=== PATIENT | female | born 1945 | race Caucasian/White ===

== ENCOUNTER 2016-07-23 13:13 | Outpatient (CLI) | payer MEDICARE ==
[~2016-07-23] VITALS: Ht 152.4 cm; Wt 70.5 kg
--- NOTE | ~2016-07-23 | HEMODYNAMI ---
PATIENT:ELOINA BAIRES MEDICAL RECORD: [id number] : 45 LOCATION:[facility] D.[address] [facility]# [id number] ADMISSION DATE: 07/23/16 Generatedon:07/23/201617:50 Patient name: ELOINA BAIRES Patient #: [id number] SSN: : 1945 Date of study: 07/23/2016 Page: Of Hemodynamic Procedure Report Patient Data Patient Demographics Procedure consent was obtained First Name: ELOINA Gender: Female Last Name: VIRY : 1945 Middle Initial: A Age: 71 year(s) Patient #: [id number] Race: Additional ID: [id number] Contact details Address: [address] [place] [address] ROAD State: [place] City: [facility] Zip code: [address] Past Medical History History of disease Date Diagnosis Comments CAD Allergies Allergen Reaction Date Comments Reported Other allergy 12/30/2014 keflex, PCN, Codeine, Ceclor, Zyrtec, Doxycyline, Levaquin Admission Admission Data Admission Date: 07/23/2016 Admission Time: 13:45 Room #: D.2114 Lab Results Lab Result Date: 07/23/2016 Lab Result Time: 0:00 Biochemistry Name Units Result Min Max BUN mg/dl 5 -*(----)-- 7 18 Creatinine mg/dl 0.9 --(-*--)-- 0.6 1.3 CBC Name Units Result Min Max Hemoglobin g/dl 12 *-(----)-- 13.5 17.5 Procedure Procedure Types Cath Procedure Diagnostic Procedure LHC LHC w/Coronaries Procedure Description Procedure Date Procedure Date: 07/23/2016 Procedure Start Time: 17:41 Procedure End Time: 17:50 Procedure Staff Name Function Adolfo Valle MD Performing Physician Enrique Smith RT Scrub Bull Benson RN Nurse Edson Ferreira RT Monitor Procedure Data Cath Procedure Fluoroscopy Diagnostic fluoroscopy Total fluoroscopy Time: 1 time: 1 min min Diagnostic fluoroscopy Total fluoroscopy dose: 441 dose: 441 mGy mGy Contrast Material Contrast Material Type Amount (ml) Isovue 300 53 Entry Location Entry Primary Successful Side Size Upsize Upsize Entry Closure Bruce ccessful Closure Location (Fr) 1 (Fr) 2 (Fr) Remarks Device Remarks Radial Right 6 Fr Mechanical artery Short Compression Estimated blood loss: 10 ml Diagnostic catheters Device Type Used For End Catheter Placement Terumo 5Fr [place] 110cm Coronary catheter Angiography Procedure Complications No complications Procedure Medications Medication Administration Route Dosage Oxygen NC 2 l/min Heparin Flush Bag added to field 2 bags (1000units/500ml NS) 0.9% NaCl I.V. 100 ml/hr Fentanyl I.V. 50 mcg Versed I.V. 1 mg Radial Cocktail added to field 1 syringe (Verapomil 2mg/Nitro 400mcg/Heparin 1500units) Radial Cocktail I.A. 1 syringe (Verapomil 2mg/Nitro 400mcg/Heparin 1500units) Fentanyl I.V. 50 mcg Versed I.V. 1 mg Hemodynamics Rest HGB: 12 (g/dl) Heart Rate: 80 (bpm) Snapshots Pre Cath Intra NCS Post Cath Vital Signs Time Heart Resp SPO2 NIBP (mmHg) Rhythm Pain Sedation Rate (ipm) (%) Status Level (bpm) 17:29:27 80 18 99 162/73(109) NSR 0 (11) 10(A) , No pain 17:33:53 75 17 97 150/58(101) NSR 0 (11) 10(A) , No pain 17:38:16 80 18 94 139/57(98) NSR 0 (11) 10(A) , No pain 17:42:34 84 17 95 130/55(83) NSR 0 (11) 9(A) , No pain 17:46:50 86 18 94 117/50(77) NSR 0 (11) 9(A) , No pain 17:49:25 90 16 94 117/57(82) NSR 0 (11) 9(A) , No pain Medications Time Medication Route Dose Verified Delivered Reason Notes Effectiveness by by 17:28:36 Oxygen NC 2 l/min Bull Gottlieb Per Marcelino Benson RN physician RN 17:28:52 Heparin Flush added 2 bags Bull Gottlieb used for Bag to Marcelino Benson mailing specialist (1000units/500ml field RN NS) 17:29:11 0.9% NaCl I.V. 100 Bull Bull Per ml/hr Marcelino Benson RN physician RN 17:40:30 Fentanyl I.V. 50 mcg Bull Bull for sedation Marcelino Benson RN RN 17:40:36 Versed I.V. 1 mg Bull Bull for sedation Marcelino Benson RN RN 17:41:49 Radial Cocktail added 1 Bull Bull used for (Verapomil to syringe Marcelino Benson RN procedure 2mg/Nitro field RN 400mcg/Heparin 1500units) 17:43:06 Radial Cocktail I.A. 1 Bull Bull for (Verapomil syringe Marcelino Benson RN vasodilation 2mg/Nitro RN 400mcg/Heparin 1500units) 17:43:13 Fentanyl I.V. 50 mcg Bull Bull for sedation Marcelino Benson RN RN 17:43:18 Versed I.V. 1 mg Bull Bull for sedation Marcelino Benson RN varnish inspector Log Time Note 17:00:15 Enrique Smith RT(R) sent for patient. Start room use. 17:08:04 ACC Patient presents with Unstable Angina CCS Anginal Class 3--Marked limitation of physical activity, angina occurs with ordinary activity.. 17:08:06 Diagnostic Cath status Urgent 17:15:59 Time tracking: Regular hours 17:16:03 Plan of Care:Hemodynamics will remain stable., Cardiac rhythm will remain stable., Comfort level will be maintained., Respiratory function will remain adequate., Patient/ family verbilizes understanding of procedure., Procedure tolerated without complication., Recovers from procedure without complications.. 17:17:42 Patient received from PCU to CCL 1 Alert and oriented. Tansferred to table in Supine position. 17:17:43 Warm blankets applied, and birdie hugger turned on for patient comfort. 17:17:44 Correct patient and procedure confirmed by team. 17:17:45 Signed procedure consent form obtained from patient. 17:17:46 ECG and BP/O2 sat monitors applied to patient. 17:28:14 Vital chart was started 17:28:36 Oxygen 2 l/min NC was given by Bull Benson RN; Per physician; 17:28:52 Heparin Flush Bag (1000units/500ml NS) 2 bags added to field was given by Bull Benson RN; used for procedure; 17:29:11 0.9% NaCl 100 ml/hr I.V. was given by Bull Benson RN; Per physician; 17:29:28 Baseline sample Acquired. 17:29:30 Rhythm: sinus rhythm 17:29:33 Full Disclosure recording started 17:29:41 H&P Date Dictated: 07/23/2016 Emergent; H&P N/A. 17:29:43 Pre-procedure instructions explained to patient. 17:29:44 Pre-op teaching completed and patient verbalized understanding. 17:29:45 Family in waiting room. 17:29:47 Patient NPO since Midnight. 17:29:49 Is the patient allergic to Iodine/contrast media? No. 17:29:50 Is patient on blood thinner?No 17:31:01 ACC The patient was administered the following blood thiners within the last 24 hours: None 17:31:12 Patient diabetic? Yes. 17:31:13 If diabetic: On Metformin? Yes 17:31:14 If on Metformin: Last Dose? 07/22/2016 17:31:16 Patient not . Patient is over age 55. 17:31:19 Previous problem with sedation/anesthesia? No ? 17:31:20 Snore? Yes 17:31:21 Sleep apnea? No 17:31:22 Deviated septum? No 17:31:23 Opens mouth fully? Yes 17:31:24 Sticks out tongue? Yes 17:31:26 Airway obstruction? Yes COPD 17:31:29 Dentures? Yes IN 17:31:33 Pre procedure: right dorsailis pedis pulse 1+ Palpable, but thready & weak; easily obliterated 17:31:35 Modified Andrei's test Ulnar < 7 seconds 17:31:36 Patient pain scale 0/10 ?. 17:31:40 IV patent on arrival in left forearm with 0.9% NaCl at [facility]. 17:31:43 Lab results completed and on chart. 17:31:47 Right Radial & Right Groin area was prepped with chlora-prep and draped in sterile fashion 17:31:48 Alarms reviewed by R. N. 17:31:48 Sharps counted by scrub and verified by R.N. 17:31:49 Physician paged 17:35:46 Zero performed for pressure channel P1 17:37:53 Lab Result : BUN 5 mg/dl 17:37:53 Lab Result : Creatinine 0.9 mg/dl 17:37:53 Lab Result : Hemoglobin 12 g/dl 17:38:43 --------ALL STOP TIME OUT------ 17:38:44 Final Timeout: patient, procedure, and site verified with staff and physician. All members of the team are in agreement. 17:38:46 Right Radial & Right Groin site verified by team. 17:38:56 Physical assessment completed. ASA score P 2 - A patient with mild systemic disease as per Adolfo Valle MD. 17:38:59 Sedation plan: IV Moderate Sedation Versed, Fentanyl 17:40:30 Fentanyl 50 mcg I.V. was given by Bull Benson RN; for sedation; 17:40:36 Versed 1 mg I.V. was given by Bull Benson RN; for sedation; 17:41:33 Procedure started. 17:41:38 Local anesthetic to right radial artery with Lidocaine 2% by Adolfo Valle MD.INITIAL ACCESS ONLY 17:41:40 Use device set Radial Dx 17:41:41 Tegaderm 4 x 4 opened to sterile field. 17:41:42 Acist Manifold opened to sterile field. 17:41:42 Acist Hand Control opened to sterile field. 17:41:44 Acist Syringe opened to sterile field. 17:41:44 Cardinal Cath Pack opened to sterile field. 17:41:44 Bag Decanter opened to sterile field. 17:41:45 Terumo 6Fr Slender Glidesheath opened to sterile field. 17:41:45 St Neymar 260cm J .035 wire opened to sterile field. 17:41:49 Radial Cocktail (Verapomil 2mg/Nitro 400mcg/Heparin 1500units) 1 syringe added to field was given by Bull Benson RN; used for procedure; 17:42:27 A 6 Fr Short sheath was inserted into the Right Radial artery 17:43:06 Radial Cocktail (Verapomil 2mg/Nitro 400mcg/Heparin 1500units) 1 syringe I.A. was given by Bull Benson RN; for vasodilation; 17:43:13 Fentanyl 50 mcg I.V. was given by Bull Benson RN; for sedation; 17:43:14 A Terumo 5Fr [place] 110cm catheter was advanced over the wire and used for Coronary Angiography. 17:43:18 Versed 1 mg I.V. was given by Bull Benson RN; for sedation; 17:43:58 LV angiography performed. 17:44:05 LV gram done using CARDONA 17:44:10 EF : 50 % 17:44:15 Injector settings: Ml/sec: 5, Volume: 15, 17:44:35 LCA angiography performed. 17:45:39 RCA angiography performed. 17:47:25 Catheter removed. 17:47:42 Terumo TR Band Standard opened to sterile field. 17:48:02 Sheath removed intact; hemostasis achieved with Mechanical Compression to the Right Radial artery. 17:48:04 Procedure ended.(Physican Out) 17:48:12 Fluoroscopy time 01.00 minutes. 17:48:14 Flurop Dose total: 441 17:48:14 Fluoroscopy dose: 441 mGy 17:48:17 Contrast amount:Isovue 300 53ml. 17:48:19 Sharps counted by scrub and verified by R.N. 17:48:22 TR band inflated with 12cc of air. 17:48:22 Insertion/operative site no bleeding no hematoma. 17:48:24 Post Procedure Pulses reassessed and unchanged 17:48:28 Post-procedure physical assessment completed. ASA score P 2 - A patient with mild systemic disease as per Adolfo Valle MD. 17:48:30 Post procedure rhythm: unchanged. 17:48:32 Estimated blood loss: 10 ml 17:48:34 Post procedure instruction explained to patient.Patient verbalizes understanding. 17:48:35 Patient needs reinforcement of post procedure teaching. 17:48:49 Procedure Complication : No complications 17:49:02 Procedure and supply charges have been captured, reviewed, submitted and are correct. 17:50:18 Vital chart was stopped 17:50:18 See physician's report for complete and final results. 17:50:21 Report given to PCU. 17:50:24 Patient transfered to PCU with Bed. 17:50:25 Procedure ended. 17:50:25 Full Disclosure recording stopped 17:50:31 End room use (Document Last) Device Usage Item Name Manufacture Quantity Catalog Hospital Part Current Minimal Lot# / Number Charge Number Stock Stock Serial# Code Tegaderm 4 3M 1 [id number] 480008 [id number] [id number] 5 x 4 Acist Acist 1 65471 502660 217044 237689 5 Manifold [employer] Inc Acist Hand Acist 1 60850 761523 837831 551564 5 Control [employer] Inc Acist Acist 1 75176 906372 419139 858295 20 Syringe Medical Systems Inc Cardinal Cardinal 1 [id number] 057532 87176 375713 5 Cath Pack Health Bag Microtek 1 2002S 0022999 48541 006858 5 Decanter [employer] Inc[employer] Terumo 6Fr Terumo 1 [id number] 217551 704463 299466 [address] Neymar 1 130466 526211 983605 394158 30 260cm J .035 wire Terumo 5Fr Terumo 1 40-1787 019282 132648 042129 5 [place] 110cm catheter Terumo TR Terumo 1 [id number] 335694 407439 508981 40 Band Standard Signature [place] Stage Time Signature Unsigned Intra-Procedure 07/23/2016 Edson Ferreira 5:50:46 PM RT(R) Signatures Monitor : Edson Ferreira RT Signature : Date : Time : [address] [place] [address]
[2016-07-23 12:15] LABS: BASOPHILS 0.2 % (0.0-2.0); EOSINOPHILS 2.1 % (0-7); HEMATOCRIT 36.5 % (36.0-48.0); IMMATURE GRANULOCYTES 0.3 % (0-5); LYMPHOCYTES 21.5 % (15-50); MCHC 32.9 g/dL (31.0-37.0); MCV 88.2 fL (80.0-100.0); MEAN PLATELET VOLUME 9.6 fL (7.4-10.4); MONOCYTES 5.7 % (2-11); NEUTROPHILS 70.2 % (40-80); PLATELET COUNT 159 10x3/uL (130-400); RBC 4.14 10x6/uL (4.00-5.40); RDW 13.4 % (11.5-14.5); WBC 5.8 10x3/uL (4.8-10.8)
[2016-07-23 12:35] LABS: ALBUMIN 3.7 g/dL (3.4-5.0); ALKALINE PHOSPHATASE 88 U/L (46-116); ALT (SGPT) 28 U/L (10-68); BILIRUBIN - TOTAL 0.32 mg/dL (0.2-1.3); CALC OSMOLALITY 278 mosm/kg (275-300); CALCIUM 8.6 mg/dL (8.5-10.1); CARBON DIOXIDE 26.3 mmol/L (21.0-32.0); CHLORIDE - SERUM 104 mmol/L (98-107); CREATININE - SERUM 0.9 mg/dL (0.6-1.3); GLUCOSE 153 mg/dL (74-106); POTASSIUM - SERUM 4.1 mmol/L (3.5-5.1); PROTEIN - SERUM 6.7 g/dL (6.4-8.2); SODIUM 140 mmol/L (136-145); UREA NITROGEN 5 mg/dL (7-18); eGFR NON AFRICAN AMERICAN 65 mL/min (90-120)
[2016-07-23 12:47] LABS: CHOL - HDL RATIO 2.9 ratio (2.3-4.1); CHOLESTEROL, TOTAL 156 mg/dL (0-200); CKMB 0.5 U/L (0.0-3.6); CREATINE KINASE 86 UL (21-215); HDL CHOLESTEROL 54 mg/dL (32-96); LDL CHOLESTEROL 84 mg/dL (0-100); LDL-HDL RATIO 1.6 ratio (1.5-3.5); TRIGLYCERIDE 90 mg/dL (30-200)
[2016-07-23 12:49] LABS: TROPONIN-I < 0.017 ng/mL (0.000-0.060)
[~2016-07-23 13:13] MED LIST: ACETAMINOPHEN500 M1 PO; BAYER CHEWABLE81 MG PO; CALTRATE PO; CELEXA20 MG PO; CELEXA40 MG PO; CO Q-10400 MG PO; COZAAR100 MG PO; CYMBALTA30 MG PO; FISH OIL 1,0001 CA1 PO; ISOSORBIDE MONO30 M1 PO; MUCINEX1200 MG/BO PO; NORVASC10 MG PO; OMNICEF300 MG PO; PLAVIX75 MG PO; PRAVACHOL40 MG PO; PREDNISONE10 MG PO; PRILOSEC20 MG PO; SINGULAIR10 MG PO; SOMA350 MG PO; STERAPRED DS 1210 MG PO; SYMBICORT 80-10.2 GM INH; SYNTHROID50 MCG PO; SYNTHROID75 MCG PO; TUDORZA PRESS400 MCG INH; VENTOLIN HFA18 GM INH; VITAMIN D31000 UNIT PO; XANAX0.5 MG PO; ZITHROMAX 500M500 MG PO
--- NOTE | 2016-07-23 14:57 | NUR ---
TRANSFER FROM ER BY STRETCHER. OREINTED TO ROOM. CALL LIGHT IN REACH. WILL COPNT. PLAN OF CARE.
[2016-07-23 15:06] VITALS: BP 122/48; Ht 152.4 cm; Wt 70.5 kg
[2016-07-23] MEDS ORDERED: LEVOTHYROXINE50 MCG PO (15:29)
[2016-07-23] MEDS ORDERED: HYDROCODON-ACE1 EAC7 PO (15:31)
[2016-07-23] MEDS ORDERED: SYMBICORT 80-10.2 GM INH (15:32)
[2016-07-23] MEDS ORDERED: GLUCOPHAGE500 MG PO (15:32)
[2016-07-23] MEDS ORDERED: K-DUR20 MEQ PO (15:33)
[2016-07-23 16:00] VITALS: BP 100/76
--- NOTE | 2016-07-23 17:22 | NUR ---
LEAVING FOR ENERGY PROJECT ENGINEER BY BED.
--- NOTE | 2016-07-23 18:11 | NUR ---
BACK FROM RESIDENCE LIFE DIRECTOR. VS WNL. RIGHT WRIST STABLE WITH TR BAND INTACT. WILL MONITOR.
[2016-07-23] MEDS ORDERED: ISOSORBIDE MONO60 M1 PO ×2 (18:44→20:07)
--- NOTE | 2016-07-23 19:00 | NUR ---
RECEIVED REPORT AND ASSUMED PT CARE FROM DAY SHIFT NURSE @ THIS TIME.
--- NOTE | 2016-07-23 19:45 | NUR ---
ATTEMPT TO RELEASE HALF THE AIR FROM TR BAND AND BAND STARTED BLEEDING REINSTILLED AIR. WILL MONITOR FREQ FOR FURTHER BLEEDING
--- NOTE | 2016-07-23 20:15 | NUR ---
REMOVED 4 CC AIR FROM TR BAND, NO BLEEDING NOTED. WILL CONT TO MONITOR.
[2016-07-23 20:25] VITALS: BP 104/41
--- NOTE | 2016-07-23 20:45 | NUR ---
ANOTHER 4 ML AIR REMOVED FROM TR BAND. NO BLEEDING NOTED. WILL MONITOR.
--- NOTE | 2016-07-23 21:29 | NUR ---
ALL THE AIR REMOVED FROM THE TR BAND, NO BLEEDING NOTED. TELEMETRY REMOVED AND IV NOW OUT, DRESSING PLACED. DISCHARGE INSTRUCTIONS GIVEN AND SIGNED. PRESCRIPTION FOR IMDUR GIVEN. DOWN TO PERSONAL AUTO VIA WC ACCOMPANIED BY SPOUSE.
--- NOTE | 2016-07-26 14:16 | OP ---
PATIENT NAME: ELOINA BAIRES MEDICAL RECORD: [id number] :45 LOCATION:D.M2 D.2114 ADMISSION DATE:07/23/16 SURGEON: ELVIS BUTLER MD DATE OF OPERATION: 07/23/2016 PROCEDURES: 1. Left heart catheterization. 2. Selective coronary angiography. 3. Left ventriculogram. INDICATION: Unstable angina. PROCEDURE IN DETAIL: After informed consent was obtained and after a detailed explanation of the risks, benefits as well as alternative therapies, the patient elected to proceed with angiogram and heart catheterization. The right radial area is prepped and draped in normal sterile fashion. The right radial artery was cannulated via modified Seldinger technique with placement of 5-Tunisian sheath. All catheters exchanged through this sheath. FINDINGS: Left ventriculogram was performed in the standard 30-degree CARDONA view reveals good cardiac wall motion throughout all segments. Overall ejection fraction is 55%. SELECTIVE CORONARY ANGIOGRAPHY: 1. Left main has a 50% stenosis in the distal aspect. 2. Left circumflex has over 80% stenosis at the ostium. The first obtuse marginal has a 95% stenosis; both marginals have decent lumen suitable for grafting. 3. Left anterior descending has previously placed stent at the juncture of the LAD and LAD diagonal. This is 80-90% restenosis. The diagonal and LAD have good lumen suitable for grafting. 4. Right coronary has a 70% stenosis in the mid vessel with a good lumen distally, suitable for grafting. OVERALL IMPRESSION: Severe 3-vessel coronary artery disease with preserved LV function. Evaluate for coronary bypass graft surgery. TRANSINT:[id number] Voice Confirmation ID: [id number] DOCUMENT ID: [id number] ELVIS BUTLER MD at 1416 CC: [id number] DICTATION DATE: 07/23/16 1752 CUSTOMS COMPLIANCE SPECIALIST: 07/24/16 0019 DIS IN 07/23/16 [address] [place] [address]
--- NOTE | 2016-07-26 14:16 | HP ---
PATIENT: ELOINA BAIRES MEDICAL RECORD: [id number] ACCOUNT: [id number] LOCATION:[address] : 45 ADMISSION DATE: 07/23/16 HISTORY AND PHYSICAL EXAMINATION ADMITTING DIAGNOSES: 1. Unstable angina. 2. Coronary artery disease. 3. Previous multivessel percutaneous transluminal coronary angioplasty stent. 4. Diabetes. 4. Hypertension. 5. Hyperlipidemia. HISTORY OF PRESENT ILLNESS: Mrs. Baires presents with 1 week of increasing anginal discomfort in an unstable fashion. She has a past history of coronary artery disease, multivessel PTCA stent, history of hypertension, history of hyperlipidemia. ALLERGIES: INTOLERANT OF STATINS. REVIEW OF SYSTEMS: The patient reports easy bruising but reports no swollen glands. The patient reports no fever, no night sweats, no significant weight gain, no significant weight loss. No significant exercise tolerance. The patient reports no dry eyes, no irritation, no vision change. Patient reports no difficulty hearing and no ear pain. Patient reports no frequent nose bleeds or nose and sinus problems. Patient reports on arm pain on exertion. No shortness of breath while lying down. No history of heart murmur. Patient reports no cough, no wheezing or coughing up blood. Patient reports no abdominal pain, no vomiting. Normal appetite. No diarrhea and not vomiting blood. No nausea and no constipation. Patient reports no incontinence. No difficulty urinating. No hematuria. No increased frequency. Patient reports no muscle aches. No weakness, no arthralgias, no back pain. No swelling of the extremities. Patient reports no abnormal mole, no jaundice, no rashes. Reports no loss of consciousness. No weakness and no numbness. No seizures, dizziness, or headaches. The patient reports no depression, no sleep disturbance, feeling safe in a relationship and no alcohol abuse. Patient reports on fatigue. Reports no runny nose or sinus pressure. No itching, no hives, and no frequent sneezing. PHYSICAL EXAMINATION: GENERAL APPEARANCE: Well-nourished, well-developed, appears stated age. Level of distress, comfortable. PSYCHIATRIC: Mental status, alert, normal affect. Orientation, oriented to time, place and person. EYES: Lids and conjunctiva, noninjected. No discharge, no pallor. ENT: Lips, teeth, gums, normal dentition. Oropharynx, no cyanosis, no pallor. NECK: Carotid arteries, bilateral normal upstroke, no bruits, no thrills. JUGULAR VEINS: No jugular venous pressure or distention. CERVICAL LYMPH NODES: Nontender, nonenlarged. THYROID: Not enlarged. Nontender. No nodules. LUNGS: Respiratory effort, unlabored. CHEST: Normal curvature. No thoracic deformity. No chest wall tenderness. Percussion, resonant. Auscultation, clear. No wheezes, no rales, no rhonchi. CARDIOVASCULAR: Precordial exam, nondisplaced. No heaves or pericardial thrills. Rate and rhythm, regular. Heart sounds, normal S1, normal S2. No S3, HISTORY AND PHYSICAL [id number] GREESON,ELOINA A no gallop, no rub. Systolic murmur, not heard. Diastolic murmur, not heard. EXTREMITIES: No cyanosis, no edema. Peripheral pulses, full and equal in all extremities, except as noted. No bruits appreciated. ABDOMEN: Soft, nondistended. Normal aorta. No bruit. Nontender. No masses. Liver, nontender, no hepatomegaly. Spleen, nontender, no splenomegaly. MUSCULOSKELETAL: No joint tenderness. No joint swelling. No erythema. NEUROLOGICAL: Normal gait, normal strength, normal tone. SKIN: Warm and dry. OVERALL IMPRESSION: Chest discomfort compatible with angina in a progressive fashion. She have hemodynamically significant coronary artery disease. PLAN: We will proceed with coronary angiography. Further care depends upon findings of the angiography. TRANSINT:[id number] Voice Confirmation ID: [id number] DOCUMENT ID: [id number] ELVIS BUTLER MD at 1416 CC: [id number] DICTATION DATE: 07/23/16 175 MIS MANAGER: 07/23/16 1856 DIS IN 07/23/16 [facility] [address] [place] [address]
--- NOTE | 2016-07-26 14:16 | DS ---
PATIENT:ELOINA BAIRES :45 MEDICAL RECORD: [id number] DISCHARGE SUMMARY ADMISSION DATE: 07/23/16 DISCHARGE DATE: 07/23/16 DISCHARGE DIAGNOSES: 1. Angina. 2. Coronary artery disease. 3. Diabetes. 4. Hypertension. 5. Hyperlipidemia. HOSPITAL COURSE: Mrs. Baires presents with anginal symptomatology, found to have significant 3-vessel coronary artery disease. She was discharged with increasing her Imdur. We will follow up with Dr. Granda for evaluation of bypass surgery. TRANSINT:[id number] Voice Confirmation ID: [id number] DOCUMENT ID: [id number] ELVIS BUTLER MD at 1416 CC: [id number] DICTATION DATE: 07/23/161755 CO PILOT: 07/24/16 0736 DIS IN 07/23/16 [address] [place] [address]
[2016-08-06] MEDS ORDERED: PROTONIX40 MG PO (13:18)
[2016-08-06] MEDS ORDERED: MOBIC7.5 MG PO (13:23)
[2016-08-06] MEDS ORDERED: PRAVACHOL40 MG PO (13:23)
== END 2016-07-23 21:29 | disposition home or self-care (01) ==
LOC: OBSVTIME → D.CATH 13:13 → OBSVTIME 13:45 → D.M2 13:45 → D.ER 13:45 → D.M2 13:45 → EDSTATUS 15:00 → D.M2 21:29 → D.CATH 21:29
PROVIDERS: Emergency Medicine
DX: I25.110 Atherosclerotic heart disease of native coronary artery with unstable angina pectoris (principal); Z95.5 Presence of coronary angioplasty implant and graft; E11.9 Type 2 diabetes mellitus without complications; I10 Essential (primary) hypertension; E78.5 Hyperlipidemia, unspecified

== ENCOUNTER → 2016-07-28 14:33 | Outpatient (CLI) | payer MEDICARE ==
[2016-07-23 15:06] VITALS: BMI 30.3
[~2016-07-28 14:33] MED LIST changes: +ATROVENT 0.02%2.5 ML UPD; +BREO ELLIPTA 21 EACH INH; +CORDARONE200 MG PO; +FISH OIL 1,2001 CAP PO; +GLUCOPHAGE500 MG PO; +HEMOCYTE PLUS C1 CAP PO; +HYDROCODON-ACE1 EAC7 PO; +ISOSORBIDE MONO60 M1 PO; +K-DUR20 MEQ PO; +LEVOTHYROXINE50 MCG PO; +MOBIC7.5 MG PO; +PROTONIX40 MG PO; +XOPENEX 0.0.63 MG/3 UPD
[2016-07-29 07:26] LABS: HEP B CORE AB TOTAL Negative (Negative); HEPATITIS C ANTIBODY <0.1 (0.0-0.9)
== END | disposition home or self-care (01) ==
LOC: D.LAB 14:33 → D.CT 15:00
PROVIDERS: Internal Medicine Cardiovascular Disease
DX: I65.23 Occlusion and stenosis of bilateral carotid arteries (principal); Z01.812 Encounter for preprocedural laboratory examination

== ENCOUNTER 2016-08-09 05:00 | Inpatient (IN) | payer MEDICARE ==
[2016-08-06 15:02] LABS: BASOPHILS 0.2 % (0.0-2.0); EOSINOPHILS 1.8 % (0-7); HEMATOCRIT 38.3 % (36.0-48.0); HEMOGLOBIN 12.6 g/dL (12-16); IMMATURE GRANULOCYTES 0.6 % (0-5); LYMPHOCYTES 28.2 % (15-50); MCH 29.1 pg (26.0-34.0); MCHC 32.9 g/dL (31.0-37.0); MCV 88.5 fL (80.0-100.0); MEAN PLATELET VOLUME 9.1 fL (7.4-10.4); MONOCYTES 7.5 % (2-11); NEUTROPHILS 61.7 % (40-80); RBC 4.33 10x6/uL (4.00-5.40); RDW 13.6 % (11.5-14.5); WBC 6.6 10x3/uL (4.8-10.8)
[2016-08-06 15:27] LABS: PLATELET COUNT 200 10x3/uL (130-400)
[2016-08-06 15:31] LABS: APTT 29.3 SECONDS (22.8-39.4)
[2016-08-06 15:32] LABS: APPEARANCE CLEAR (CLEAR); BACTERIA FEW /hpf (NONE SEEN); BILIRUBIN NEGATIVE (NEGATIVE); COLOR YELLOW (YELLOW); EPITHELIAL CELLS 0-5 /hpf (0-5); GLUCOSE NEGATIVE (NEGATIVE); KETONE NEGATIVE (NEGATIVE); LEUKOCYTE ESTERASE 2+ (NEGATIVE); NITRITE NEGATIVE (NEGATIVE); PROTEIN NEGATIVE (NEGATIVE); SPECIFIC GRAVITY 1.005 (1.005-1.020); UROBILINOGEN NORMAL (NORMAL)
[2016-08-06 15:33] LABS: HEMOGLOBIN A1C 6.9 % (4.8-6.0)
[2016-08-06 15:35] LABS: ALKALINE PHOSPHATASE 92 U/L (46-116); ALT (SGPT) 24 U/L (10-68); BILIRUBIN - TOTAL 0.32 mg/dL (0.2-1.3); CALC OSMOLALITY 280 mosm/kg (275-300); CARBON DIOXIDE 30.4 mmol/L (21.0-32.0); CHLORIDE - SERUM 104 mmol/L (98-107); CHOLESTEROL, TOTAL 167 mg/dL (0-200); CREATININE - SERUM 0.8 mg/dL (0.6-1.3); PHOSPHOROUS 3.1 mg/dL (2.5-4.9); POTASSIUM - SERUM 4.3 mmol/L (3.5-5.1); PROTEIN - SERUM 7.3 g/dL (6.4-8.2); SODIUM 141 mmol/L (136-145); T4 THYROXIN - FREE 1.06 ng/dL (0.76-1.46); THYROID STIMULATING HORMONE 0.96 uIU/mL (0.36-3.74); UREA NITROGEN 12 mg/dL (7-18); URIC ACID 2.6 mg/dL (2.6-7.2); eGFR NON AFRICAN AMERICAN 75 mL/min (90-120)
[2016-08-06 15:37] LABS: GLUCOSE 94 mg/dL (74-106)
[2016-08-06 15:50] LABS: COLD SCREEN @ 4 DEGREES 2+ (NEGATIVE); COLD SCREEN ROOM TEMP NEGATIVE (NEGATIVE)
--- NOTE | 2016-08-07 12:06 | HP ---
PATIENT: ELOINA KINGSLEY MEDICAL RECORD: [id number] ACCOUNT: [id number] LOCATION:[facility] : 45 ADMISSION DATE: 08/09/16 HISTORY AND PHYSICAL EXAMINATION NameELOINA KINGSLEY (71yo, F) ID# [id number]. Date/Time07/27/2016 01:[id number] 1945Service Dept.NPP_[place] [facility] ClinicProviderEDNATE THOMAS MDInsuranceMed Primary: [facility] (MEDICARE REPLACEMENT/ADVANTAGE - PPO) Insurance # : [id number] Policy/Group # : [id number] Referring Provider Name : GREGORY ALEX Employer Name : RETIRED Prescription: ORX - Member is eligible. Chief Complaint Coronary artery disease s/p LCEA 02/19/09 eval for CABG Patient's Care Team Referring Provider (): GREGORY ALEX: [address] [place] [phone], , [facility] ([facility]-ORDER, ERX): [phone] [facility] [id number], , [facility] (ERX): [address] [place] [id number], , Vitals BP:122/70 sitting R arm 07/27/2016 01:05 pmHR:100R/R 07/27/2016 01:05 pmHt:5 ft 07/27/2016 12:56 pmWt:155 lbs 07/27/2016 01:05 pmBMI:30.3 07/27/2016 01:05 pmAllergies Reviewed Allergies CECLORCODEINEDOXYCYCLINEKEFLEXLEVAQUINPENICILLINSZYRTECMedications Reviewed Medications ALPRAZolam 0.5 mg zbueiw29/01/16 filledArgAVOS Cloud Health SystemsamLODIPine 10 mg eshtoe75/30/17 filledPRESCRIPTION SOLUTIONScitalopram 40 mg wjlogi44/29/17 filledPRESCRIPTION SOLUTIONSdiazePAM 10 mg yfjqeg76/12/16 [facility] YashiDULoxetine 30 mg capsule,delayed /25/15 filledCh[facility] Centerus erentoHYDROcodone 5 mg-acetaminophen 325 mg /20/17 filledPRESCRIPTION SOLUTIONSisosorbide mononitrate ER 60 mg tablet,extended release 24 hr twice daily07/24/16 filledPRESCRIPTION SOLUTIONSlevalbuterol 1.25 mg/3 mL solution for nyqlqwomndlw48/24/15 [facility] erentolevothyroxine 50 mcg hitkmg22/30/17 filledPRESCRIPTION SOLUTIONSlosartan 100 mg aykuym03/30/17 filledPRESCRIPTION SOLUTIONSmeloxicam 15 mg ulrrlr73/05/17 filledPRESCRIPTION SOLUTIONSmetFORMIN 500 mg iwyllx42/29/17 filledPRESCRIPTION SOLUTIONSmontelukast 10 mg htroyk90/27/16 filledZ[facility] Health Systemsomeprazole 20 mg capsule,delayed wbusqni95/30/17 filledPRESCRIPTION SOLUTIONSpotassium chloride ER 20 mEq tablet,extended release(part/cryst)07/01/16 filledPRESCRIPTION SOLUTIONSpravastatin 40 mg gtdbzy53/30/17 filledPRESCRIPTION ZDXHGIZHCExht32/27/12 enteredTracy SavaSpiriva with HandiHaler 18 mcg and inhalation djyivnoi85/11/16 filledChandler [facility] Medical CenterPepscan SystemsVaccines Reviewed Vaccines Vaccine TypeDateAmt.RouteSiteLot #Mfr.Exp. DateDate on VISVIS HISTORY AND PHYSICAL [id number] ELOINA KINGSLEY Ramona GivenVaccinatorInfluenzainfluenza, high dose febrhvek5604pncjfsdrp, seasonal, azzuayvzer25/2011Pneumococcalpneumococcal polysaccharide [id number] Reviewed Problems Coronary arteriosclerosis in [place] artery Carotid artery occlusion Allergic rhinitis Pneumonia Asthma Chronic obstructive lung disease Gastroesophageal reflux disease Dyspnea Family History Discussed Family History Non-contributory.NOTHING LISTEDSocial History Discussed Social History General Occupation: RETIRED (Notes: 2008) Marital status: Smoking Status: Never smoker (Notes: NONSMOKER) Alcohol intake: None Caffeine intake: Moderate (Notes: COFFEE 2 CUPS PD) Surgical History Reviewed Surgical History Other - 08/2013 - PTCA/Stent Other - 06/07/2012 - cholecystectomy by Dr Aguilar Cholecystectomy, laparoscopic - 06/07/2012 Other - 2008 - CLOGGED ARTERY IN NECK 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 HPI coronary artery disease with angina pectoris ROS Patient reports no fever, no night sweats, no significant w eight gain, no significant weight loss, and no exercise intolerance. She reports no dry eyes, no irritation, and no vision change. She reports no difficulty hearing and no ear pain. HISTORY AND PHYSICAL [id number] ELOINA KINGSLEY She reports no frequent nosebleeds and no nose/sinus problems. She report s no sore throat, no bleeding gums, no snoring, no dry mouth, no mouth ulcers, no oral abnormalities, and no teeth problems. She reports no chest pain, no arm pain on exertion, no shortness of breath when walking, no shortness of breath when lying down, no palpitations, and no known heart murmur. She reports no cough, no wheezing, no shortness of breath, and no coughing up blood. She reports no abdominal pain, no vomiting, normal appetite, no diarrhea, not vomiting blood, no nausea, and no constipation. She reports no incontinence, no difficulty urinating, no hematuria, and no increased frequency. She reports no muscle aches, no muscle weakness, no arthralgias/joint pain, no back pain, and no swelling in the extremities. She reports no abnormal mole, no saniya d ice, and no rashes. She reports no loss of consciousness, no weakness, no numbness, no seizures, no dizziness, and no headaches. She reports no depression, no sleep disturbances, feeling safe in relationship, and no alcohol abuse. She reports no fatigue. She reports no swollen glands and no bruising. She reports no runny nose, no sinus pressure, no itching, no hives, and no frequent sneezing. ROS as noted in the HPI Physical Exam Patient is a 71-year-old female. Constitutional: General Appearance: well no urished, well developed, and appears stated age. Level of Distress: no acute distress. Ambulation: ambulating normally. ENMT: Nasal Mucosa: normal, no discharge, and pink and moist. Septum: not markedly deformed. Turbinates: normal turbinate. Lips, Teeth, and Gums: normal lips, dentition, and gums. Oral Mucosa: no ulcer, mass, pallor, cyanosis, inflammation, swelling, rash, or leukoplakia and moist. Palate: normal hard palate and oropharynx: soft palate. Tongue: no erythema, lesions, enlargement, swelling , or deviation. Tonsils: no enlargement, lesions, mass (___ cm), or tonsil crypts. Posterior pharynx: no enlargement, erythema, exudate, ulcers, mass, or white patches. Neck: Neck: supple, trachea midline, no masses, and Full ROM. Thyroid: no enlargement o r nodules and non-tender. Jugular Veins: normal jugular venous pressure and no de la paz a waves present; carotid bruits bilaterally. Lungs: Respiratory effort: unlabored. Inspection: normal curve and chest wall expansion; no deformity, tenderness, or swelling; and tactile fremitus present and equal on both sides. Auscultation: no wheezing, rales/crackles, or rhonchi and breath sounds normal. Percussion: no dullness, flatness, or hyper resonance. Cardiovascular: Precordial Exam: no heaves or precordial thrills and non displaced focal PMI. Heart Rate And Rhythm: normal heart rate and rhythm. Heart Sounds: no gallop, click, physiologically split S2, or pericardial friction rub and normal s1. Systolic Murmur: no systolic murmurs. Diastolic Murmur: no diastolic murmurs. Observation/Palpation of peripheral vascular system: no cyanosis, edema, varicosity changes, or palpable cord and normal dorsalis pedis a nd posterior tibialis. Abdomen: Inspection and Palpation: no bruit, tenderness, or masses and soft, non-distended, and normal aorta. Liver: non-tender and no hepatomegaly. Spleen: non-tender and no splenomegaly. Bowel Sounds: normal and no abdominal bruits . Lymphatic: no cervical LAD, axillary LAD, inguinal LAD, femoral LAD, supraclavicular LAD, or popliteal LAD. Musculoskeletal:: Motor Strength and Tone: normal bulk, tone, and motor strength. Gait and Station: normal gait, station, toe walk, heel walk, an d tandem gait. HISTORY AND PHYSICAL [id number] ELOINA KINGSLEY Joints, Bones, and Muscles: no contractures, malalignment, tenderness, or bony abnormalities and normal movement of all extremities. Extremities: Inspection/Palpation of digits and nails: no clubbing, cyanosis, petechiae, infection, ischemia, or nodular lesions. Skin: Inspection and palpation: no rash, lesions, jaundice, ulcer, erythema, or induration and normal turgor. Neurologic: Mental Status/Orientation: oriented to person, place, problem/situation, and time. Mood/Affect: normal mood and affect. Assessment / Plan history of carotid artery disease with carotid endarterectomy on the left Angina pectoris with multiple stents in the past 1. Coronary arteriosclerosis in [place] artery I25.110: Atherosclerotic heart disease of [place] coronary artery with unstable angina pectoris Discussion Notes Ms. Kingsley would benefit from coronary artery bypass howeverDoppler studies in April were elevated. We had planned to repeat her Doppler studies therefore we will need a CT angiogram of her calvin tids before proceeding with coronary artery bypass. I discussed her disease process with her and her in detail as well as the alternative methods of treatment. We discussed coronary artery bypass and the expected benefits and risk which included b leeding, infection, stroke, loss of limb, and . She understands all of the above and wishes to proceed with planned procedures. Return to Office to see Sharan Thomas MD at [facility] on or around 10/27/2016 Sharan Thomas MD for Office Visit 15 at [facility] on 11/11/2016 at 10:45 AM to see Herson Johnston MD at [facility] on or around 01/10/2017 Encounter Sign-Off Encounter signed-off by Sharan Thomas MD, 07/27/2016. SHARAN THOMAS MD at 1206 CC: [id number] DICTATION DATE: 07/27/16 1300 BIZTALK CONSULTANT: MAIA 08/03/16 1251 PRE IN [facility] [address] [id number]
[~2016-08-09] VITALS: Ht 152.4 cm; Wt 72.6 kg
[2016-08-09] VITALS (37 sets, daily range): BP systolic 98–149; BP diastolic 42–72; BMI 30.3
[~2016-08-09 05:00] MED LIST changes: -ATROVENT 0.02%2.5 ML UPD; -BREO ELLIPTA 21 EACH INH; -CORDARONE200 MG PO; -FISH OIL 1,2001 CAP PO; -HEMOCYTE PLUS C1 CAP PO; -XOPENEX 0.0.63 MG/3 UPD
[2016-08-09] MEDS ORDERED: FISH OIL 1,2001 CAP PO (05:37)
--- NOTE | 2016-08-09 06:03 | NUR ---
0555 UPDRAFT GIVEN PER RESPIRATORY ORDERED
[2016-08-09 07:36] LABS: PLT FUNCT.(P2Y12) PLAVIX 339 PRU (194-418)
[2016-08-09 14:43] LABS: HEMATOCRIT 32.8 % (36.0-48.0); HEMOGLOBIN 10.8 g/dL (12-16); MCH 29.3 pg (26.0-34.0); MCHC 32.9 g/dL (31.0-37.0); MCV 88.9 fL (80.0-100.0); MEAN PLATELET VOLUME 9.2 fL (7.4-10.4); RBC 3.69 10x6/uL (4.00-5.40); RDW 13.6 % (11.5-14.5); WBC 13.1 10x3/uL (4.8-10.8)
[2016-08-09 14:49] LABS: APTT 46.7 SECONDS (22.8-39.4); INR 1.52 (0.85-1.17); PROTIME 18.2 SECONDS (11.6-15.0)
[2016-08-09 14:50] LABS: CALC OSMOLALITY 308 mosm/kg (275-300); CALCIUM 7.2 mg/dL (8.5-10.1); CARBON DIOXIDE 28.7 mmol/L (21.0-32.0); CHLORIDE - SERUM 114 mmol/L (98-107); CREATININE - SERUM 0.8 mg/dL (0.6-1.3); SODIUM 155 mmol/L (136-145); UREA NITROGEN 6 mg/dL (7-18); eGFR NON AFRICAN AMERICAN 75 mL/min (90-120)
[2016-08-09 14:51] LABS: GLUCOSE 163 mg/dL (74-106)
--- NOTE | 2016-08-09 15:39 | NUR ---
Patient arrived from OR with heart team.
--- NOTE | 2016-08-09 16:00 | NUR ---
in room with family, update given.
--- NOTE | 2016-08-09 16:15 | NUR ---
in to see patient. Order for fluid challenge received.
--- NOTE | 2016-08-09 16:50 | NUR ---
in room to see patient. No new orders at this time.
--- NOTE | 2016-08-09 17:00 | NUR ---
informed of patients admission and status at this time.
--- NOTE | 2016-08-09 17:10 | NUR ---
in room to see patient. POC discussed. No new orders at this time.
--- NOTE | 2016-08-09 17:37 | NUR ---
RT in room, rate decreased from 14 to 12.
--- NOTE | 2016-08-09 17:39 | NUR ---
Patient beginning to wake up, staying calm. Vitals remain stable at this time.
--- NOTE | 2016-08-09 18:36 | NUR ---
RT in room, ABG drawn and rate decreased to 10.
--- NOTE | 2016-08-09 18:55 | NUR ---
called for update, updated on gases, patients recent emesis episode, vent settings etc. Order for units PRBCS per standing order verified and order for lasix in between the 2 units.
--- NOTE | 2016-08-09 19:15 | NUR ---
REC'D PT ON VENT VIA 8.0 ETT TAPED @ 22CM LIPLINE SEE FLOWSHEET FOR VENT SETTINGS, PT AWAKE AND ALERT ON VENT, FOLLOWING COMMANDS, NODDING YES AND NO APPROPRIATELY, TAMIKA ROONEY DRSG CDI SWAN AT APPROX 50CM, DISTAL PORT WITH INSULIN @ 3UNITS/HR, PROXIMAL PORT WITH 1ST PRBC INFUSING, PROXIMAL INFUSION WITH MANNIFOLD INFUSING PLASMALYTE @ 100CC/HR, DOPAMINE @ 5MCG/KG/MIN, LEVOPHED @ 5CC/HR, OGT TAPED SECURELY TO ETT, PLACEMENT VERIFIED VIA SM AIR BOLUS AUSCULTATED, LDLSCL DRSG CDI BURETROL INFUSING @ 10CC/HR, MIDSTERNAL DRSG CDI, SUBSTERNAL DRSG WITH CT'S X 3 TO 20CM H2O SUCTION, EXTERNAL P/M DDD 100 AMA 10 VMA 10, CM- ATRIALLY SENSING, V PACING, ABD ROUND SOFT, BS ABSENT, LEFT RADIAL ELISA WITH FLEXION BOARD IN USE, LEVELED AND ZEROED WITH RETURN OF APPROPRIATE WAVEFORM, CRITICORE ABBASI PATENT DRAINING CLEAR YELLOW URINE, RIGHT LEG WITH COBAN CDI, RIKKI DRAINS COMPRESSED X 2 WITH SANGUINOUS DRAINAGE, WATER CUSHION TO HEELS, BILAT SOFT WRIST RESTRAINTS INTACT, 1:1 NURSE IN DOORWAY.
--- NOTE | 2016-08-09 19:45 | NUR ---
PT RESTLESS IN BED, COMPLAINS OF BEING HOT, TEMP 38.0 PER CC, BLANKET REMOVED.
--- NOTE | 2016-08-09 20:30 | NUR ---
RT AT BS PT CHANGED TO SIMV RATE 8 550 40% PEEP 5 PS 10, RESP RATE 23, WILL CONT TO MONITOR.
--- NOTE | 2016-08-09 20:38 | NUR ---
PT COUGHING UP SPUTUM AROUND ETT, NODS HEAD YES WHEN ASKED IF NAUSEATED, 4MG ZOFRAN GIVEN SLOW IVP AT THIS TIME.
--- NOTE | 2016-08-09 20:45 | NUR ---
BACTROBAN ADMINISTERED ORDERED, ORAL MEDS HELD DUE TO PT NAUSEA AND NPO STATUS, PT ASSISTED TO POSITION FOR COMFORT.
--- NOTE | 2016-08-09 21:10 | NUR ---
AND SON AT BS, UPDATE PROVIDED, PT ATTEMPTING TO COMMUNICATE WITH FAMILY, REMAINS CALM AND COOPERATIVE ON VENT, VSS.
--- NOTE | 2016-08-09 22:00 | NUR ---
PT REPOSITIONED ONTO RIGHT SIDE SUPPORTED WITH PILLOW, PT CONTINUES TO COMPLAIN ABOUT BEING HOT, THERMOSTAT ADJUSTED FURTHER FOR PT COMFORT
--- NOTE | 2016-08-09 22:25 | NUR ---
RT AT BS, PT PLACED ON CPAP, PT RESTING WITH EYES CLOSED ON VENT, RESP RATE 22, BP STABLE.
--- NOTE | 2016-08-09 23:30 | NUR ---
NIF AND VC DONE PER RT, PT EXTUBATED TO 4LITERS VIA NC, OGT DC'D, ORAL CARE PROVIDED, PT DENIES NAUSEA AT THIS TIME, IONIZED CALCIUM PER ABG 0.95, SBP 90'S AND CARDIAC OUTPUT 3.5, 1 GRAM CALCIUM BEGUN AT THIS TIME, POTASSIUM PER ABG 3.3 ANOTHER 10MEQ GIVEN PER S/S.
[2016-08-10] VITALS (97 sets, daily range): BP systolic 92–137; BP diastolic 43–64; Ht 152.4 cm; Wt 72.6 kg
--- NOTE | 2016-08-10 00:10 | NUR ---
PT REQUESTING SOMETHING TO DRINK, A FEW ICE CHIPS GIVEN AT THIS TIME.
--- NOTE | 2016-08-10 00:25 | NUR ---
PT UNCOMFORTABLE IN BED, REPOSITIONED UP AND ONTO RIGHT SIDE SUPPORTED WITH PILLOW PER REQUEST.
--- NOTE | 2016-08-10 00:40 | NUR ---
PT BELCHING, VOMITTED 50CC GOLD COLORED EMESIS, 4MG ZOFRAN GIVEN SLOW IVP, PARTIAL BATH AND LINEN CHANGE PROVIDED, RIGHT SIDE OF SUBSTERNAL DRSG NOTED TO HAVE SANGUINOUS DRAINAGE, DRSG REMOVED AND ANTERIOR CT SITE ASSESSED, SM CLOT NOTED IN UPPER TUBE, CT MILKED AT THIS TIME, SITE CLEANED AND REDRESSED WITH 4X4'S AND LARGE TEGADERMS, PT RESTING EYES CLOSED, RESP EVEN AND UNLABORED, WILL MONITOR CLOSELY FOR CHANGES.
--- NOTE | 2016-08-10 02:30 | NUR ---
PT REPOSITIONED UP AND ONTO LEFT SIDE SUPPORTED WITH PILLOW, PT COMPLAINS OF BACK PAIN IN CENTER OF BACK, MORPHINE HAND RUG CLEANER STARTED AT THIS TIME TO LDLSCL, MORPHINE 1MG Q10MIN WITH 24MG Q4HR LOCKOUT, INSTRUCTIONS FOR USE PROVIDED, PT VERBALIZES UNDERSTANDING.
--- NOTE | 2016-08-10 03:10 | NUR ---
PT POSITIONED ONTO BACK, RADIOLOGY HERE FOR PCXR
--- NOTE | 2016-08-10 03:15 | NUR ---
PT REPOSITIONED UP IN BED AND ONTO RIGHT SIDE PER REQUEST, EXPLAINED TO PT THE IMPORTANCE OF ROTATING SIDE TO SIDE, STATES " OK BUT IT HURTS TO BAD", ENCOURAGED PT TO USE MORPHINE CAREER DEVELOPMENT FACILITATOR FOR DISCOMFORT, WILL CONT TO MONITOR FOR CHAANGES.
--- NOTE | 2016-08-10 04:45 | NUR ---
CHLORIHEXIDINE BATH GIVEN AND COMPLETE LINEN CHANGE, PT TOLERATED WELL, REPOSITIONED UP AND ONTO BACK FOR COMFORT.
--- NOTE | 2016-08-10 05:15 | NUR ---
PT COMPLAINS OF NAUSEA, 10MG REGLAN GIVEN SLOW IVP, PT REQUESTING ICE WATER, PT INFORMED NO WATER AT THIS TIME DUE TO NAUSEA, VERBALIZED UNDERSTANDING.
--- NOTE | 2016-08-10 06:05 | NUR ---
DR. ALEX AT SPEAKING WITH PT.
[2016-08-10 06:12] LABS: HEMATOCRIT 28.4 % (36.0-48.0); HEMOGLOBIN 9.4 g/dL (12-16); MCH 29.1 pg (26.0-34.0); MCHC 33.1 g/dL (31.0-37.0); MCV 87.9 fL (80.0-100.0); MEAN PLATELET VOLUME 9.5 fL (7.4-10.4); RBC 3.23 10x6/uL (4.00-5.40); RDW 14.8 % (11.5-14.5); WBC 13.1 10x3/uL (4.8-10.8)
[2016-08-10 06:19] LABS: PLATELET COUNT 75 10x3/uL (130-400)
[2016-08-10 06:31] LABS: ALBUMIN 3.4 g/dL (3.4-5.0); ALKALINE PHOSPHATASE 35 U/L (46-116); ALT (SGPT) 63 U/L (10-68); CALC OSMOLALITY 293 mosm/kg (275-300); CALCIUM 8.2 mg/dL (8.5-10.1); CARBON DIOXIDE 32.9 mmol/L (21.0-32.0); CHLORIDE - SERUM 110 mmol/L (98-107); CREATININE - SERUM 0.8 mg/dL (0.6-1.3); GLUCOSE 117 mg/dL (74-106); POTASSIUM - SERUM 3.8 mmol/L (3.5-5.1); PROTEIN - SERUM 5.1 g/dL (6.4-8.2); SODIUM 148 mmol/L (136-145); eGFR NON AFRICAN AMERICAN 75 mL/min (90-120)
[2016-08-10 06:34] LABS: UREA NITROGEN 10 mg/dL (7-18)
--- NOTE | 2016-08-10 07:00 | NUR ---
Received report from MOE Stark and assumed care of patient. Pt currently a 1:1. Patient is awake and alert to year, place and situation. Pt reoriented to day. Pt c/o pain in between shoulder blades, Morphine BUSINESS DEVELOPMENT AGENT infusing. NC @ 4L. Right IJ swan eric with Plasmalyte, Dopamine, Insulin gtt infusing. Tyler at 51 CM locked and secured. Left subclavian double lumen CVL secured to chest/neck with buretrol @ 10 and morphine BUSINESS DEVELOPMENT AGENT. Midsternal dressing CDI. Substernal dressing with CT x3 and TPM wires x2. Siegel cath in place draining clear yellow urine to criticore collection system. Bruising to left upper thigh noted. Right leg harvest site, RIKKI drains x [address] in [address]. Pedal pulses palpable, warm to touch. See shift assessment flowsheet for all findings.
[2016-08-10 07:09] LABS: PLATELET ESTIMATE DECREASED
--- NOTE | 2016-08-10 07:19 | NUR ---
Patient repostioned to left side. Ice chips given per request.
--- NOTE | 2016-08-10 07:38 | NUR ---
Patients son called, update given. Family will be here for 0900 visiation.
--- NOTE | 2016-08-10 07:48 | NUR ---
Patient requested to turn to right side, helped with repositioning.
--- NOTE | 2016-08-10 07:53 | NUR ---
in room. Pacemaker settings adjusted, TPM remains DDD rate of 100, 10 & 10
--- NOTE | 2016-08-10 08:45 | NUR ---
AM medications given per EMAR. Patient tolearating sips of water.
--- NOTE | 2016-08-10 09:00 | NUR ---
Patients family in room to see patient. Update given and questions and concerns addressed.
--- NOTE | 2016-08-10 09:24 | NUR ---
Attempts to strip Anterior CT made multiple times. Will notify MOE Winston of CT condition.
--- NOTE | 2016-08-10 09:29 | NUR ---
MOE Winston Nurse notified of anterior CT lack of drainage and possible clot.
--- NOTE | 2016-08-10 10:30 | NUR ---
Dr.Warren Miguelangel's PA in room to assist me with stripping Anterior CT. CT remains without output.
--- NOTE | 2016-08-10 10:40 | NUR ---
Frequent PVCs being noted on CM. Requested ABG per respiratory.
--- NOTE | 2016-08-10 11:45 | NUR ---
in to see patient. Discussed patient and current vitals. Informed him of anterior CT, no new orders at this time.
--- NOTE | 2016-08-10 12:30 | NUR ---
Patient family in room to see patient. Update given,questions and conerns addressed.
--- NOTE | 2016-08-10 13:20 | NUR ---
Patient asleep at this time. VSS
--- NOTE | 2016-08-10 13:26 | NUR ---
Is the patient Alert and Oriented? Yes 0 * How many steps to enter\exit or inside your home? 3 0 * PCP DR. ALEX 0 * Pharmacy [facility] 0 * Preadmission Environment Home with Family 0 * ADLs Independent 0 * Equipment Oxygen 0 * Other Equipment PATIENT STATES SHE HAS O2 PROVIDED BY [facility] BY SHE STATES SHE DOES NOT WEAR IT. 0 * List name and contact numbers for known caregivers / representatives who currently or will assist patient after discharge: SPOUSE: NAYELY [phone] SON: SHIVAM [phone] 0 * Community resources currently utilized None 0 * Additional services required to return to the preadmission environment? No 0 * Can the patient safely return to the preadmission environment? Yes 0 * Has this patient been hospitalized within the prior 30 days at any hospital? No PATIENT STATES SHE LIVES AT HOME WITH HER , NAYELY. SHE IS INDEPENDENT IN ALL ADL'S. HER PCP IS DR. ALEX. SHE GETS HER MEDS FROM [facility] OR [facility]. PATIENT STATES SHE HAS O2 FROM [facility] BUT DOES NOT WEAR IT. SHE STATES SHE HAD HOME HEALTH IN THE PAST BUT IT HAS BEEN GREATER THAN 5 YEARS AND SHE DOES NOT RECALL THE AGENCY. THERE ARE 3 STEPS TO ENTER HER HOME. PATIENT PLANS TO RETURN HOME WITH FAMILY AT DISCHARGE. NO DISCHARGE NEEDS IDENTIFIED AT THIS TIME.
--- NOTE | 2016-08-10 14:31 | NUR ---
Patient dressings changed. Right leg harvest sites x5, RIKKI drains x2. Drains stripped and compressed. Substernal dressings changed, TPM wires x [address] x3, stripped and dressing applied. Patient tolerated well.
--- NOTE | 2016-08-10 14:39 | NUR ---
CT drainage system for anterior and posterior chest tubes changed out due to Posterior chamber being full. Sterile techinque used.
--- NOTE | 2016-08-10 15:19 | NUR ---
Patients family here to visit. Update given. Pt dozing off during conversation.
--- NOTE | 2016-08-10 16:46 | NUR ---
Patient pulling 500 on I/S, has cough after using flutter. Pt expelled thick green sputum, suction uised.
--- NOTE | 2016-08-10 18:38 | NUR ---
Called with gases, numbers and discussed patients current condition. Order for 2 units PRBCS with 40mg IV lasix in between the 2 units received as well as order to put patient back on Dopamine at 3mcgs and not to titrate. Will start 1 of 2 PRBC at this time
--- NOTE | 2016-08-10 19:20 | NUR ---
REPORT REC'D AND CARE ASSUMED, REC'D PT RESTING IN BED EYES CLOSED, O2 @ 4LITERS VIA NC, PT AWAKENS TO VERBAL STIMULI, ORIENTED X 3, RIJ SWAN NEVIN AT APPROX 50CM, DRSG CDI, MANNIFOLD TO PROXIMAL INFUSION WITH PLASMALYTE @ 100CC/HR, DOPAMINE @ 3MCG/KG/MIN, AND INSULIN @ 2 UNITS/HR. 1ST UNIT PRBC'S INFUSING, MIDSTERNAL DRSG CDI, LDLSCL DRSG CDI WITH BURETROL @ 10CC/HR, LEFT RADIAL ELISA WITH FLEXION BOARD IN USE, LEVELED AND ZEROED WITH RETURN OF APPROPRIATE WAVEFORM, SUBSTERNAL DRSG WITH MEDIASTINAL CT'S X [address] X 1 ALL TO 20CM H2O SUCTION, NO AIR LEAK NOTED, SANGNUINOUS DRAINAGE NOTED, RIGHT LEG DRSGS CDI, RIKKI DRAINS X 2 COMPRESSED WITH SM AMOUNT SANGUINOUS DRAINAGE, CRITICORE ABBASI PATENT DRAINING CLEAR YELLOW URINE, SCD'S AND COLLINS'S ON, PPP, WATER CUSHION TO HEELS, PT DENIES PAIN OR NEEDS, 1:1 NURSE IN DOORWAY.
--- NOTE | 2016-08-10 20:40 | NUR ---
EVENING MEDS GIVEN WITH SIPS OF WATER, PT DENIES NEEDS, SR UP X 2, MORPHINE IMMIGRATION COORDINATOR IN REACH.
--- NOTE | 2016-08-10 21:15 | NUR ---
PT COMPLAINS OF FEELING NAUSEATED, 4MG ZOFRAN GIVEN SLOW IVP, VSS, 2ND UNIT PRBC'S INFUSING.
--- NOTE | 2016-08-10 21:20 | NUR ---
AND SON AT BS, UPDATE GIVEN AND QUESTIONS ANSWERED, PT REPORTS NAUSEA FEELING BETTER.
--- NOTE | 2016-08-10 23:00 | NUR ---
REASSESSMENT COMPLETED, NO CHANGES FROM PREVIOUS ASSESSMENT, FSBS 127, INSULIN GTT REMAINS @ 3 UNITS/HR, PT TOLERATING ICE CHIPS, DENIES FURTHER NAUSEA.
[2016-08-11] VITALS (82 sets, daily range): BP systolic 92–139; BP diastolic 34–68
--- NOTE | 2016-08-11 00:20 | NUR ---
PT REPOSITIONED UP AND FURTHER ONTO RIGHT SIDE PER REQUEST, ICE CHIPS PROVIDED, PT DENIES FURTHER NEEDS, WILL CONT TO MONITOR FOR CHANGES.
--- NOTE | 2016-08-11 01:00 | NUR ---
PT UNCOMFORTABLE IN BED, PT REPOSITIONED ONTO LEFT SIDE SUPPORTED WITH PILLOW, PT ENCOURAGED TO USE MORPHINE PRODUCTION SORTER FOR PAIN CONTROL, VERBALIZES UNDERSTANDING.
--- NOTE | 2016-08-11 01:35 | NUR ---
PT REPOSITIONED BACK TO RIGHT SIDE PER REQUEST, STATES " I JUST CAN'T GET COMFORTABLE".
--- NOTE | 2016-08-11 03:15 | NUR ---
PT REPOSITIONED ONTO BACK AFTER BREATHING TX, PT PULLING 500 ON IS X 10, RADIOLOGY @ BS FOR AM CXR, PT DENIES PAIN AT THIS TIME, FLOOR FRAMER BUTTON IN REACH.
--- NOTE | 2016-08-11 05:15 | NUR ---
COMPLETE BATH AND LINEN CHANGE PROVIDED, PT REPOSITIONED UP IN BED FOR COMFORT, LDLSCL DRSG CHANGED PER PROTOCOL AND BIOPATCH APPLIED, VSS, WILL CONT TO MONITOR FOR CHANGES.
--- NOTE | 2016-08-11 05:35 | NUR ---
AM LAB DRAWN FROM CV AND SENT TO LAB.
[2016-08-11 06:13] LABS: ALBUMIN 2.9 g/dL (3.4-5.0); ALKALINE PHOSPHATASE 45 U/L (46-116); CALC OSMOLALITY 286 mosm/kg (275-300); CALCIUM 7.7 mg/dL (8.5-10.1); CARBON DIOXIDE 32.1 mmol/L (21.0-32.0); CHLORIDE - SERUM 104 mmol/L (98-107); CREATININE - SERUM 0.6 mg/dL (0.6-1.3); GLUCOSE 133 mg/dL (74-106); MAGNESIUM - SERUM 2.2 mg/dL (1.8-2.4); PHOSPHOROUS 2.6 mg/dL (2.5-4.9); POTASSIUM - SERUM 3.7 mmol/L (3.5-5.1); PROTEIN - SERUM 5.5 g/dL (6.4-8.2); SODIUM 143 mmol/L (136-145); UREA NITROGEN 12 mg/dL (7-18); eGFR NON AFRICAN AMERICAN > 90 mL/min (90-120)
[2016-08-11 06:14] LABS: ALT (SGPT) 85 U/L (10-68)
[2016-08-11 06:27] LABS: BASOPHILS 0.1 % (0.0-2.0); EOSINOPHILS 0 % (0-7); HEMATOCRIT 32.8 % (36.0-48.0); HEMOGLOBIN 10.8 g/dL (12-16); IMMATURE GRANULOCYTES 0.3 % (0-5); MCH 28.7 pg (26.0-34.0); MCHC 32.9 g/dL (31.0-37.0); MCV 87.2 fL (80.0-100.0); MEAN PLATELET VOLUME 9.8 fL (7.4-10.4); MONOCYTES 6.2 % (2-11); NEUTROPHILS 86.4 % (40-80); PLATELET COUNT 64 10x3/uL (130-400); RBC 3.76 10x6/uL (4.00-5.40); RDW 15.8 % (11.5-14.5); WBC 15.2 10x3/uL (4.8-10.8)
--- NOTE | 2016-08-11 06:30 | NUR ---
SERUM K 3.7 5MEQ RIDER BEGUN AT THIS TIME, PT RESTING EYES CLOSED, RESP EVEN AND UNLABORED, VSS.
--- NOTE | 2016-08-11 08:29 | NUR ---
0715-RECIEVED PER FLOW SHEET-PT AWAKE AND ALERT-ABLE TO FOLLOW ALL DIRECTION-STATED NOT AWRE OF DAY OF WEEK-EASILY [id number] BAGS CHANGED TO N/S WITHOUT HEPARIN-NOTED PACED 100%-WITH SENSED PAC BEATS-KCL NFUSING PER SLIDING SCALE-DR LABOY AT BEDSIDE-STATUS REPORT GIVEN-PT ABLE TO TURN SELF TO R WOOD DIE MAKER-
--- NOTE | 2016-08-11 09:33 | NUR ---
FAMILY AT BEDSIDE-QUESTIONS ANSWERED TO BEST OF ABILITY
--- NOTE | 2016-08-11 10:39 | NUR ---
DR VALADEZ AT BEDSIDE-FLUTTER VALVE DONE BY PT -MODERATE-NON PRODUCTIVE COUGH-IS DONE 500ML-POOR EFFORT-NON PRODUCTIVE COUGH
--- NOTE | 2016-08-11 18:50 | NUR ---
1230-DR THOMAS AT BEDSIDE-PREMED VERSED 2MG IVP GIVEN BY SAME FOR REMOVAL OF CHEST TUBE AND SWAN NEVIN-PER PROCEDURE-DOP CONTINUED AND WEANED TO 2.5 IN L CVL -INSULIN D/C'D-CORDIS D/C'D FOLLOWING REMOVVAL OF 3 SUTURES-R LEG BOTH J JUAN R REMOVED WITH TIPS INTACT-FOLLOWING REMOVAL OF 2 SUTURES- 1330-DOPAMINE WEANED OFF-PER PARAMETERS-SYS 127- 1430-L RADIAL ELISA D/C'D- 1510-ABBASI CATH REMOVED -K SHANNON CALLED UNIT UPDATE GIVEN-PT TRANSFERED TO WHEELCHAIR-TO CVICU RM 3- ASSISTED TO BATHROOM AND ASSISTED BACK TO BED -PLACED TO MONITOR FOR SR AND FREQUENT PAC-L CVL SALINE LOCKED TEMP PACER AT 60/0/10-NOTED FREQUENT PAC 1630-NOTED NIBP-92SYS- 1700-NIBP 94SYS 1705-INFORMED DR WILLIAM HARRISON-DIRECTED TO RESTART DOPAMINE AT 3MCG/KG/MIN- 1715-L CVL DOPAMINE AT MCG/KG/MIN 1800-NOTED FREQUENT PAC-88-PT C/O OF SEVERE HOT FLASH-PAUSED DOP AND ABG STAT CALLED 1810-K 3.5-10KCL OVER 1 HR STARTED-PT STATED HOT FLASH RESOLVED-NOTED CONTINUED FREQUENT PAC- 1845-RT RX IN PROGRESS 1900-DOPAMINE RESUMED AT 3MCG/KG/MIN
--- NOTE | 2016-08-11 19:21 | NUR ---
REPORT RECIEVED. ASSESSMENT COMPLETE PER FLOW SHEET. VSS. PT AWAKE ALERT ORIENTED X4 C/O OF BEING HOT GIVEN COOL RAG. DENIES PAIN. EYES 3MM PERRLA O2 VIA NC 2L O2 SAT 96% RR 16 SHALLOW RUL RML KERWIN CLEAR BILAT LOWER LOBES DEMINISHED. COUGH DEEP BREATH ENCOURAGED STRONG NON PRODUCTIVE COUGH PRESENT. HEART S1S2 HR 86 NSR TPM PATENT DRSG CDI VVI 60 VMA 10 SENSITIVITY 2.0 BP 113/58. MIDSTERNAL DRSG CDI SUBSTERNAL DRSG DRSG CDI. BILAT LOWER EXTREMETIES GENERALIZED EDEMA NOTED, ELEVATED ON PILLOWS. SCD'S ON REMOVED SKIN ASSESSMENT COMPLETE NO NEW FINDINGS. R LEG HARVEST SITE DRSG CDI BILAT COLLINS'S ON. PT DENIES FURTHER NEEDS. WILL CONTINUE TO MONITOR.
--- NOTE | 2016-08-11 20:12 | NUR ---
ASSISTED ONTO BEDPAN. PASSING GAS NO BM NOTED. DENIES FURTHER NEEDS.
--- NOTE | 2016-08-11 21:31 | NUR ---
FAMILY AT BEDSIDE GIVEN UPDATE. DENIES NEEDS.
--- NOTE | 2016-08-11 22:16 | NUR ---
ASSISTED ONTO BEDPAN 150 CC LORI URINE NOTED.
--- NOTE | 2016-08-11 23:17 | NUR ---
REASSESSMENT COMPELETE PER FLOW SHEET. VSS. NO NWE CHANGES. WILL CONTINUE TO MONITOR.
[2016-08-12] VITALS (48 sets, daily range): BP systolic 75–146; BP diastolic 7–85
--- NOTE | 2016-08-12 01:16 | NUR ---
ASSISTED UP IN BED ON BEDPAN 300 CC LORI URINE NOTED.
--- NOTE | 2016-08-12 02:37 | NUR ---
RESP AT BEDSIDE DUONEB ADM. NO NEW CHANGES
--- NOTE | 2016-08-12 03:24 | NUR ---
REASSESSMNET COMPLETE PER FLOW SHEET. VSS. NO NEW CHANGES WILL CONTINUE TO MONITOR.
--- NOTE | 2016-08-12 03:42 | NUR ---
RR AT BEDSIDE ABG EKG OBTAINED. NO NEW FINDINGS AT THIS TIME.
--- NOTE | 2016-08-12 05:10 | NUR ---
COMPLETE BB LINEN CHANGE ADM. SUBSTERNAL DRSG CHANGE ADM NO NEW FINDNIGS. CDI. R LEG DRSG CHANGE ADM SEROSANG DRAINAGE NOTED. DRSG CDI. WILL CONTINUE TO MONITOR.
[2016-08-12 07:06] LABS: ALBUMIN 2.6 g/dL (3.4-5.0); ALKALINE PHOSPHATASE 47 U/L (46-116); BILIRUBIN - TOTAL 0.66 mg/dL (0.2-1.3); CALC OSMOLALITY 281 mosm/kg (275-300); CALCIUM 8.1 mg/dL (8.5-10.1); CARBON DIOXIDE 30.7 mmol/L (21.0-32.0); CHLORIDE - SERUM 103 mmol/L (98-107); CREATININE - SERUM 0.5 mg/dL (0.6-1.3); GLUCOSE 163 mg/dL (74-106); MAGNESIUM - SERUM 2.2 mg/dL (1.8-2.4); POTASSIUM - SERUM 3.8 mmol/L (3.5-5.1); PROTEIN - SERUM 5.4 g/dL (6.4-8.2); SODIUM 139 mmol/L (136-145); UREA NITROGEN 13 mg/dL (7-18); eGFR NON AFRICAN AMERICAN > 90 mL/min (90-120)
[2016-08-12 07:08] LABS: BASOPHILS 0.1 % (0.0-2.0); EOSINOPHILS 0 % (0-7); HEMATOCRIT 30.9 % (36.0-48.0); IMMATURE GRANULOCYTES 0.4 % (0-5); LYMPHOCYTES 6.8 % (15-50); MCH 28.6 pg (26.0-34.0); MCHC 32.4 g/dL (31.0-37.0); MCV 88.3 fL (80.0-100.0); MONOCYTES 5.6 % (2-11); NEUTROPHILS 87.1 % (40-80); PLATELET COUNT 69 10x3/uL (130-400); RDW 15.6 % (11.5-14.5); WBC 12.7 10x3/uL (4.8-10.8)
[2016-08-12 07:12] LABS: ALT (SGPT) 57 U/L (10-68); PHOSPHOROUS 1.5 mg/dL (2.5-4.9)
--- NOTE | 2016-08-12 07:15 | NUR ---
REPORT RECIEVED FROM QUANTOMETER OPERATOR NURSE. PT RESTING IN BED QUIETLY. NO S/SX OF ACUTE DISTRESS NOTED AT THIS TIME. SHIFT ASSESSMENT COMPLETE PER FLOWSHEET. CALL LIGHT IN REACH. BED IN LOW POSITION. WILL CONT TO ASSESS FOR CHANGES THROUGHOUT SHIFT.
--- NOTE | 2016-08-12 08:00 | NUR ---
ASSISTED TO RECLINER WITH NO ISSUES NOTED. BREAKFAST TRAY PLACED IN REACH.
--- NOTE | 2016-08-12 10:05 | NUR ---
NORCO ADMINISTERED FOR PAIN RATED A 6 ON THE NUMERIC SCALE. STATES SHE IS HAVING INCISIONAL PAIN AND PAIN TO LEFT SIDE. WILL REASSESS PAIN.
--- NOTE | 2016-08-12 10:28 | NUR ---
Nutrition follow-up: Diet: ADA consistent CHO PO intake poor to fair Labs reviewed RDN following.
--- NOTE | 2016-08-12 11:30 | NUR ---
ATE 25% OF MEAL. STATES EVERTHING TASTES "SALTY". DECREASED APPETITE POST SX. WILL CONT TO ASSESS INTAKE.
--- NOTE | 2016-08-12 12:15 | NUR ---
ASSISTED TO BATHROOM. VOIDED CLEAR, YELLOW URINE. ASSISTED BACK TO BED. STATED SHE WAS TOO TIRED TO REMAIN SITTING IN RECLINER.
--- NOTE | 2016-08-12 15:30 | NUR ---
ASSISTED TO BATHROOM WITH MIN ASSIST REQUIRED. VS REMAINED STABLE.
--- NOTE | 2016-08-12 16:30 | NUR ---
LUNCH TRAY PLACED ON BST. FRESH ICE WATER PLACED IN REACH. AT BEDSIDE. WILL CONT TO ASSESS.
--- NOTE | 2016-08-12 17:00 | NUR ---
SISTER AT BEDSIDE. UPDATE PROVIDED.
--- NOTE | 2016-08-12 18:00 | NUR ---
RECIEVING BREATHING TX NOW. DENIES NEEDS. CALL LIGHT IN REACH.
--- NOTE | 2016-08-12 19:30 | NUR ---
REPORT RECVD. CARE ASSUMED. INITIAL ASSMNT COMPLETED. SEE FLOWSHEET FOR ALL FINDINGS. RESTING WITH EYES CLOSED. AROUSES TO VOICE. AOX4. DENIES PAIN/NEEDS. RESP EVEN AND UNLABORED. SHALLOW. LUNGS CTA, DIM IN BASES. SPO2 97% ON O2 AT 2 LPM NC. OCC PROD COUGH REPORTED. SR WITH OCC PACS SEEN ON THE MONITOR. PULSES PALP, WEAK, X4. GENERALIZED EDEMA PRESENT. TEDS/SCDS IN USE. AFEBRILE. STERNAL DRESSINGS CDI. RIGHT LEG DRESSINGS CDI. ABD SOFT, BSA X4. PASSING FLATUS. BLADDER NON PALP. TURNED AND REPOSITIONED. HOB UP. C/L IN REACH. CONT CURRENT POC.
--- NOTE | 2016-08-12 21:15 | NUR ---
HS MEDS GIVEN. ASSISTED UP TO BR TO VOID. AGUSTO CARE PROVIDED. ASSISTED TO AMBULATE BACK TO BED AND TO A POSITION OF COMFORT. ALL MONITORS INTACT AND WITHIN PARAMETERS. HOB UP. C/L PLACED IN REACH. CONT CURRENT POC.
--- NOTE | 2016-08-12 23:20 | NUR ---
REASSESSMENT COMPLETED. SEE FLOWSHEET FOR ALL FINDINGS. SEE FLOWSHEET FOR ALL FINDINGS. RESTING WITH EYES CLOSED. AROUSES TO VOICE. AOX4. DENIES PAIN/NEEDS. RESP EVEN AND UNLABORED. SHALLOW. LUNGS CTA, DIM IN BASES. SPO2 97% ON O2 AT 2 LPM NC. OCC PROD COUGH REPORTED. SR WITH OCC PACS SEEN ON THE MONITOR. PULSES PALP, WEAK, X4. GENERALIZED EDEMA PRESENT. TEDS/SCDS IN USE. AFEBRILE. STERNAL DRESSINGS CDI. RIGHT LEG DRESSINGS CDI. ABD SOFT, BSA X4. PASSING FLATUS. BLADDER NON PALP. TURNED AND REPOSITIONED. HOB UP. C/L IN REACH. CONT CURRENT POC.
[2016-08-13] VITALS (25 sets, daily range): BP systolic 92–146; BP diastolic 27–65
--- NOTE | 2016-08-13 01:06 | NUR ---
ASSISTED TO BATHROOM TO VOID. AGUSTO CARE PROVIDED. AISSISTED BACK TO BED AND POSITIONED FOR COMFORT. MONITORS RECONNECTED. VSS. PRN NORCO PROVIDED FOR INCREASED PAIN LEVEL. HOB UP. C/L IN REACH. CONT CURRENT POC.
--- NOTE | 2016-08-13 03:12 | NUR ---
REASSESSMENT COMPLETED. SEE FLOWSHEET FOR ALL FINDINGS. RESTING WITH EYES CLOSED. AROUSES TO VOICE. AOX4. DENIES PAIN/NEEDS. RESP EVEN AND UNLABORED. SHALLOW. LUNGS CTA, DIM IN BASES. SPO2 97% ON O2 AT 2 LPM NC. OCC PROD COUGH REPORTED. SR WITH OCC PACS SEEN ON THE MONITOR. PULSES PALP, WEAK, X4. GENERALIZED EDEMA PRESENT. TEDS/SCDS IN USE. AFEBRILE. STERNAL DRESSINGS CDI. RIGHT LEG DRESSINGS CDI. ABD SOFT, BSA X4. PASSING FLATUS. BLADDER NON PALP. TURNED AND REPOSITIONED. HOB UP. C/L IN REACH. CONT CURRENT POC.
--- NOTE | 2016-08-13 04:10 | NUR ---
RIGHT LEG DRESSING CHANGED PER ORDERS. ASSISTED TO BR TO VOID. AGUSTO CARE PROVIDED. INDEPENDENT WITH ORAL CARE AT SINK. ASSISTED BACK TO CHAIR AT BEDSIDE. RADIOLOGY TRANSFERRED TO W/C TO TAKE TO 2 VIEW XRAY. PT STABLE. AOX4. CONT CURRENT POC.
--- NOTE | 2016-08-13 04:45 | NUR ---
RETURNED FROM XRAY AND ASSISTED INTO BED AND TO SIDE LYING POSITION. PRN NORCO GIVEN FOR PAIN CONTROL. VSS. HOB UP. C/L IN REACH. CONT POC.
--- NOTE | 2016-08-13 05:15 | NUR ---
RESTING IN BED, SIDE LYING, WITH NO DISTRESS. VSS. DENIES PAIN/NEEDS. HOB UP. C/L IN REACH. CONT CURRENT POC.
[2016-08-13 06:11] LABS: HEMATOCRIT 29.6 % (36.0-48.0); HEMOGLOBIN 9.5 g/dL (12-16); MCH 28.9 pg (26.0-34.0); MCHC 32.1 g/dL (31.0-37.0); MEAN PLATELET VOLUME 9.6 fL (7.4-10.4); RBC 3.29 10x6/uL (4.00-5.40); RDW 15.6 % (11.5-14.5); WBC 9.2 10x3/uL (4.8-10.8)
[2016-08-13 06:24] LABS: ALBUMIN 2.4 g/dL (3.4-5.0); ALKALINE PHOSPHATASE 49 U/L (46-116); ALT (SGPT) 41 U/L (10-68); BILIRUBIN - TOTAL 0.62 mg/dL (0.2-1.3); CALC OSMOLALITY 284 mosm/kg (275-300); CARBON DIOXIDE 32.4 mmol/L (21.0-32.0); CHLORIDE - SERUM 104 mmol/L (98-107); CREATININE - SERUM 0.6 mg/dL (0.6-1.3); GLUCOSE 148 mg/dL (74-106); MAGNESIUM - SERUM 2.2 mg/dL (1.8-2.4); PHOSPHOROUS 1.9 mg/dL (2.5-4.9); POTASSIUM - SERUM 3.7 mmol/L (3.5-5.1); PROTEIN - SERUM 5.3 g/dL (6.4-8.2); SODIUM 141 mmol/L (136-145); UREA NITROGEN 14 mg/dL (7-18); eGFR NON AFRICAN AMERICAN > 90 mL/min (90-120)
--- NOTE | 2016-08-13 06:31 | NUR ---
K+ LEVEL TREATED PER ORDERS
--- NOTE | 2016-08-13 16:16 | NUR ---
0715-RECIEVED PER FLOW SHEET-ASSISTED OUT OF BED AND AMBULATED TO BATHROOM-TOLERATED WELL-ASSISTED TO BEDSIDE CHAIR-NOTED SR WITH FREQUENT PAC ON MONITOR-KCL COMPLETED DOPAMINE REMAINS AT 3 MCG/KG /MIN-CONTINUES L ARM WEKER THAN RIGHT-PT STATES" THIS IS CHRONIC-HAS ALL KINDS OF TEST/MRI/CT SCANS IN [place]" 0830-BREAK FEST TRAY TAKEN-PT AT BEDSIDE AND AMBULATED WITH TELEMETRY UNIT AND O2 AT 3L RADIOGRAPHER 0900-REMAINS SITTING UP IN CHAIR-KCL 40 SET OVER 3HRS STARTED ORDERED -LASIX IV GIVEN ORDERED 1030-DR THOMAS AT [facility]-CURRENTLY DIRECTED TO LEAVE DOPAMINE IS 1215-LUNCH TRAY TAKEN SITTING UP
--- NOTE | 2016-08-13 16:21 | NUR ---
1330-ASSISTED BACK TO BED-REMAINS SR WITH OCC PAC-NORCO 1 TAB GIVEN REQUESTED 1415-DR THOMAS IN UNIT REVIEWED-DIRECTED TO LEAVE DOPAMINE AT 3MCG/KG/MIN UNTIL FURTHER DIRECTION
--- NOTE | 2016-08-13 19:32 | NUR ---
REPORT REC'D, CARE ASSUMED. INITIAL ASSESSMENT COMPLETE, SEE FLOWHSEET FOR ALL FINDINGS. PT AOX4, DENIES PAIN AT THIS TIME. UNLABORED RESPIRATIONS, CLEAR/DIMINISHED LUNG SOUNDS. COUGH/DB WITH GOOD EFFORT, PRODUCTIVE COUGH WITH CLEAR SPUTUM PRESENT. NC @ 2L, SPO2 97. NORMAL SINUS ON MONITOR. TEMP PACEMAKER SECURED TO CHEST. STERNAL DSGS CDI, RT LEG DSGS CDI. PERIPHERAL PULSES PALP, WEAK. PT REPOSITIONED TO R SIDE FOR COMFORT. VOICES NO FURTHER NEEDS AT THIS TIME. CALL LIGHT AND BEDSIDE TABLE WITHIN PT REACH. CPOC.
--- NOTE | 2016-08-13 19:44 | NUR ---
1700-DRG CHANGED TO R LEG-DRG CHANGED TO CHEST TUBE INSERTION SITES PACER WIRES INTACT 1800-AWAKE AND ALERT-DOPAMINE AT 3MCG/KG/MIN
--- NOTE | 2016-08-13 21:31 | NUR ---
HS MEDS GIVEN, FRESH WATER TO BEDSIDE. PT REPOSITIONED FOR COMFORT. BS 139, NO INSULN GIVEN PER SLIDING SCALE. PT DENIES PAIN AT THIS TIME. VSS, NSR ON MONITOR. VOICES NO FURTHER NEEDS AT THIS TIME. CALL LIGHT AND BEDSIDE TABLE WITHIN PT REACH. CPOC.
--- NOTE | 2016-08-13 22:30 | NUR ---
PT ASSISTED TO BATHROOM. REPOSITIONED BACK IN BED TO L SIDE.
--- NOTE | 2016-08-13 23:40 | NUR ---
REASSESSMENT COMPLETE, SEE FLOWSHEET FOR ALL FINDINGS. PT REPOSITIONED TO SIDE LYING POSITION. NSR ON MONITOR. PERIPHERAL PULSES PRESENT. UNLABORED RESPIRATIONS. COUGH/DB WITH GOOD EFFORT, CLEAR SPUTUM. RESTING COMFORTABLY AT THIS TIME. CALL LIGHT AND BEDSIDE TABLE WITHIN PT REACH. CPOC.
[2016-08-14] VITALS (27 sets, daily range): BP systolic 103–140; BP diastolic 32–79
--- NOTE | 2016-08-14 01:30 | NUR ---
PT SLEEPING QUIETLY WITH UNLABORED RESPIRATIONS. VSS, NO S/S OF PAIN OR DISTRESS AT THIS TIME. PT SIDE LYING. ALLOWED TO CONTINUE SLEEPING UNDISTURBED AT THIS TIME. CALL LIGHT AND BEDSIDE TABLE WITHIN PT REACH. CPOC.
--- NOTE | 2016-08-14 03:25 | NUR ---
PT ASSISTED TO BATHROOM, REPOSITIONED BACK IN BED TO L SIDE. VSS, DENIES PAIN AT THIS TIME. REASSESSMENT COMPLETE, SEE FLOWSHEET FOR ALL FINDINGS. NSR WITH OCCASIONAL PAC'S ON MONITOR. PERIPHERAL PULSES PRESENT. NO ACUTE DISTRESS NOTED. UNLABORED RESPIRATIONS. RESTING COMFORTABLY AT THIS TIME. CALL LIGHT AND BEDSIDE TABLE WITHIN PT REACH. CPOC.
[2016-08-14 05:58] LABS: HEMATOCRIT 32.4 % (36.0-48.0); HEMOGLOBIN 10.4 g/dL (12-16); MCH 29.1 pg (26.0-34.0); MCHC 32.1 g/dL (31.0-37.0); MCV 90.8 fL (80.0-100.0); MEAN PLATELET VOLUME 9.7 fL (7.4-10.4); RBC 3.57 10x6/uL (4.00-5.40); RDW 15.5 % (11.5-14.5); WBC 8.1 10x3/uL (4.8-10.8)
[2016-08-14 06:11] LABS: ALBUMIN 2.6 g/dL (3.4-5.0); ALKALINE PHOSPHATASE 59 U/L (46-116); ALT (SGPT) 37 U/L (10-68); BILIRUBIN - TOTAL 0.72 mg/dL (0.2-1.3); CALC OSMOLALITY 281 mosm/kg (275-300); CALCIUM 8.2 mg/dL (8.5-10.1); CHLORIDE - SERUM 104 mmol/L (98-107); CREATININE - SERUM 0.6 mg/dL (0.6-1.3); GLUCOSE 144 mg/dL (74-106); MAGNESIUM - SERUM 1.9 mg/dL (1.8-2.4); PHOSPHOROUS 2.2 mg/dL (2.5-4.9); POTASSIUM - SERUM 3.6 mmol/L (3.5-5.1); PROTEIN - SERUM 5.9 g/dL (6.4-8.2); SODIUM 140 mmol/L (136-145); UREA NITROGEN 12 mg/dL (7-18); eGFR NON AFRICAN AMERICAN > 90 mL/min (90-120)
--- NOTE | 2016-08-14 06:35 | NUR ---
K+ BEING TREATED PER PROTOCOL
--- NOTE | 2016-08-14 06:35 | NUR ---
HEART RATE DISCUSSED WITH JEFFREY THOMAS REC'[place].
--- NOTE | 2016-08-14 11:55 | OP ---
PATIENT NAME: ELOINA BAIRES MEDICAL RECORD: [id number] :45 LOCATION:[facility] D.CV03 ADMISSION DATE:08/09/16 SURGEON: SHARAN THOMAS MD DATE OF OPERATION: 08/09/2016 SURGEON: Sharan Thomas MD ANESTHESIA: General endotracheal, Dr. Kam and Dr. Harris. OPERATION PERFORMED: Coronary artery bypass utilizing left internal thoracic, left anterior descending, reverse saphenous vein graft to the second diagonal, reverse saphenous vein graft to first obtuse marginal and reverse saphenous vein graft to the distal right coronary artery. PREOPERATIVE DIAGNOSES: Severe occlusive coronary artery disease secondary to atherosclerosis with angina. POSTOPERATIVE DIAGNOSES: Severe occlusive coronary artery disease secondary to atherosclerosis with angina. INDICATION FOR OPERATION: Angina pectoris. FINDINGS AT OPERATION: The greater saphenous vein was of excellent caliber and quality. The left internal thoracic was also an excellent conduit. The target vessels the distal right was diffusely diseased, but a good caliber vessel. The left anterior descending and first obtuse marginal coronary artery were 1.5 mm vessels and graftable. The left ventricular function was good. ESTIMATED BLOOD LOSS: Cell Saver was used. DESCRIPTION OF PROCEDURE: After informed consent, adequate preoperative medication evaluation, the patient was brought to the operating room, placed on the table in the supine position. After induction of general endotracheal anesthesia and application of appropriate monitoring devices, the chest, neck, abdomen, and both legs were prepped and draped in a sterile field, utilizing Betadine scrub, alcohol, and Betadine solution. A Betadine-impregnated drape was also used. Saphenous vein was harvested from right leg through small transverse incisions and prepared for reverse saphenous vein grafting. The leg was closed over drains utilizing 3-0 Vicryl and skin lowell. A median sternotomy incision was used and dissection carried down the fascia. Hemostasis maintained with electrocautery. The sternum was divided. The innominate vein was identified and protected. Left internal thoracic was taken down and prepared for grafting. The patient was given a calculated dose of heparin. After the ACT was prolonged, the patient was cannulated in a standard fashion utilizing 1 aortic and 1 two-stage cannula in the atrium and the inferior vena cava. The patient was placed on cardiopulmonary bypass, cooled to 32 degrees centigrade. A cross clamp was placed just proximal to the aortic cannula. The patient was given cardioplegic solution through the aortic root. The patient was given a cold induction and cold maintenance. The patient was given cold intermittent cardioplegic solution throughout the procedure, either through the root, through the grafts or a combination of both. The first vessel to be grafted was the distal right. It was grafted end-to-side utilizing a running 7-0 Prolene suture. The graft was measured back to the aorta and a proximal anastomosis fashioned utilizing running 6-0 Prolene suture. Next, the second diagonal was grafted end-to-side utilizing a running 7-0 Prolene suture. The OPERATIVE REPORT [id number] ELOINA BAIRES grafts was measured back to the aorta and a proximal anastomosis fashioned utilizing running 6-0 Prolene suture. Next, the first obtuse marginal was grafted end-to-side utilizing a running 7-0 Prolene suture. The graft was measured back to the aorta and a proximal anastomosis fashioned utilizing running 6-0 Prolene suture. Next, left internal thoracic was brought through a hole in pericardium through sutured left anterior descending end-to-side utilizing a running 8-0 Prolene suture. Pedicle was attached to epicardium with 6-0 Prolene suture. All maneuvers to remove trapped air were performed. The patient was given warm cardioplegic reperfusion and controlled reperfusion. The patient rewarmed to 37 degrees centigrade. When she reached that point, 2 atrial and 2 ventricular placing wires were placed on the heart and brought out through the epigastric area. The patient weaned cardiopulmonary bypass. After being stable off bypass, he was given a calculated dose of protamine to reverse the heparin. Hemostasis was achieved. A #40 right angle and #36 chest tubes were brought in through the epigastric area and placed in the mediastinum. A separate left pleural tube was connected to underwater seal and suction. Chest was again irrigated. Instrument count and sponge count were correct times 2. Chest was closed in layers utilizing #7 wire on the sternum, #2 Vicryl on linea alba and pectoralis fascia. Subcutaneous tissue was approximated with 3-0 Vicryl and skin approximated with 3-0 subcuticular Vicryl. Sterile dressings were applied. The patient tolerated the procedure well and was transferred to the ICU in critical, but stable condition. TRANSINT:[id number] Voice Confirmation ID: [id number] DOCUMENT ID: [id number] SHARAN THOMAS MD at 1155 CC: [id number] DICTATION DATE: 08/09/16 1503 REFERENCE LIBRARIAN: 08/09/16 2248 ADM IN [place] [id number] [place] [id number]
--- NOTE | 2016-08-14 14:49 | NUR ---
0715-RECIVED AWAKE AND ALERT-SITTING UP IN CHAIR-KCL [id number] BOLUS INFUSING 0730-NOTED RETURN TO SR 80'S- 0800 CORDARONE GTT AT 1MG/MIN STARTED FOR 6H- 944-AMBULATE WITH PHYSICAL THERAPY ON TELEMETRY-REMAINS SR ON MONITOR 1045-ASSISTED TO BED PER PT REQUEST 1145-AWAAKE AND ALERT-ASSISTED TO BEDSDIE COMMODE -DR THOMAS AT BEDSIDE-STATUS REPORT -AT THIS TIME SR WITH NO PAC
--- NOTE | 2016-08-14 18:43 | NUR ---
1645-ASSISTED BACK TO BED-REMAINS SR 1815-ASSISTED ON BED BRADLEY-SR ON MONITOR
--- NOTE | 2016-08-14 19:00 | NUR ---
PT AOX4. SR ON MONITOR, PERIPHERAL PULSES PALP, WEAK. UNLABORED RESPIRATIONS, COUGH/DB WITH GOOD EFFORT. PRODUCTIVE COUGH, CLEAR SPUTUM. PT REPOSITIONED FOR COMFORT TO R SIDE. PARTIAL LINEN CHANGE COMPLETE. AMIODARONE INFUSING @ 0.5 MG/MIN. DOPAMINE INFUSING @ 3 MCG/KG/MIN. CALL LIGHT AND BEDSIDE TABLE WITHIN PT REACH. CPOC.
--- NOTE | 2016-08-14 19:24 | NUR ---
PRN NORCO GIVEN PER REQUEST, PAIN @ 10/04. FRESH WATER TO BEDSIDE. PT REPOSITIONED FOR COMFORT. VOICES NO FURTHER NEEDS AT THIS TIME.
--- NOTE | 2016-08-14 21:14 | NUR ---
HS MEDS GIVEN. PT RESTING COMFORTABLY, DENIES PAIN AT THIS TIME. VSS, SR ON MONITOR. VOICES NO FURTHER NEEDS AT THIS TIME. CPOC.
--- NOTE | 2016-08-14 23:18 | NUR ---
REASSESSMENT COMPLETE, SEE FLOWSHEET FOR ALL FINDINGS. PT RESTING WITH UNLABORED RESPIRATIONS. NO ACUTE CHANGES AT THIS TIME. VSS. CPOC.
[2016-08-15] VITALS (57 sets, daily range): BP systolic 90–144; BP diastolic 32–107
--- NOTE | 2016-08-15 00:15 | NUR ---
PRN NORCO GIVEN PER REQUEST. PT ASSISTED TO VOID, REPOSITIONED BACK IN BED TO R SIDE. VSS, DENIES FURTHER NEEDS AT THIS TIME. CALL LIGHT AND BEDSIDE TABLE WITHIN PT REACH. CPOC.
--- NOTE | 2016-08-15 03:21 | NUR ---
REASSESSMENT COMPLETE, SEE FLOWSHEET FOR ALL FINDINGS. NSR ON MONITOR, CORDARONE INFUSING @ 0.5 MG/MIN. TEMP PACEMAKER SECURED TO CHEST. UNLABORED RESPIRATIONS. PT REPOSITIONED FOR COMFORT. PERIPHERAL PULSES PALP. DENIES FURTHER NEEDS AT THIS TIME. CALL LIGHT AND BEDSIDE TABLE WITHIN PT REACH. CPOC.
--- NOTE | 2016-08-15 04:30 | NUR ---
COMPLETE BATH AND LINEN CHANGE. R LEG DSG'S CHANGED, CHEST DSG CHANGED. PT REPOSITIONED IN BED TO R SIDE. VSS.
--- NOTE | 2016-08-15 04:57 | NUR ---
PRN NORCO GIVEN PER PT REQUEST. PT REPOSITIONED FOR COMFORT. VSS.
[2016-08-15 06:01] LABS: HEMATOCRIT 33.4 % (36.0-48.0); HEMOGLOBIN 10.6 g/dL (12-16); MCHC 31.7 g/dL (31.0-37.0); MCV 91.3 fL (80.0-100.0); MEAN PLATELET VOLUME 10.1 fL (7.4-10.4); RBC 3.66 10x6/uL (4.00-5.40); RDW 15.7 % (11.5-14.5); WBC 8.8 10x3/uL (4.8-10.8)
[2016-08-15 06:23] LABS: ALBUMIN 2.5 g/dL (3.4-5.0); ALKALINE PHOSPHATASE 65 U/L (46-116); ALT (SGPT) 31 U/L (10-68); CALC OSMOLALITY 281 mosm/kg (275-300); CALCIUM 8.5 mg/dL (8.5-10.1); CARBON DIOXIDE 29.6 mmol/L (21.0-32.0); CHLORIDE - SERUM 102 mmol/L (98-107); CREATININE - SERUM 0.6 mg/dL (0.6-1.3); GLUCOSE 182 mg/dL (74-106); PROTEIN - SERUM 6.1 g/dL (6.4-8.2); SODIUM 139 mmol/L (136-145); UREA NITROGEN 10 mg/dL (7-18); eGFR NON AFRICAN AMERICAN > 90 mL/min (90-120)
--- NOTE | 2016-08-15 15:35 | NUR ---
0715-RECIEVED PER FLOW SHEET-AWAKE ALERT-ASSISTED UP TO CHAIR-TOLERATED WELL NOTED SR WITH PAC-CORDARONE AT 0.5MG/MIN-DOPAMINE AT 3MCG-O2 AT 2L -NOTED INCREASED L ARM STRENGTH- 0830-BREAKFEST TRAY TAKEN 0850-PHYSICAL THERAPY AT BEDSIDE-AMBULATED IN UNIT 1030-SITTING UP IN CHAIR-SR ON MONITOR 1245-DR THOMAS IN UNIT-PT AMBULATING IN HALLWAY WITH PHYSICAL THERAPY-VERBAL DIRECTION GIVEN TO START WEANING DOPAMINE SLOWLY-KEEP NIBP >100-NOTED CONT PAC-LEAVE CORDARONE AT 0.5MG/MIN IV CONTINUOUS 1300-DOPAMINE DECREASED TO 2.5MCG/KG/MIN 1500-DOPAMINE DECREASED TO 2.0MCG/KG/MIN
--- NOTE | 2016-08-15 19:58 | NUR ---
REPORT RECEIVED AND ASSESSMENT COMPLETED. SEE FLOWSHEET FOR FULL DETAILS. PT ON 2L NC NO ABBASI. LEFT DOUBLE LUMEN IN PLACE. DOPAMINE AT 2 MCG AND AMIODERONE AT 0.5 MG. PT IS NORMAL SINUS WITH SOME PAC'S. B/P 104/35. VSS. WILL CONTINUE TO MONITOR.
--- NOTE | 2016-08-15 21:42 | NUR ---
2100 MEDS GIVEN. ASSISTED PT TO BSC. 700 OUT. NO OTHER CHANGES AT THIS TIME. VSS. WILL MONITOR.
--- NOTE | 2016-08-15 23:00 | NUR ---
REASSESSMENT COMPLETED. SEE FLOWSHEET FOR FULL DETAILS.
[2016-08-16] VITALS (45 sets, daily range): BP systolic 90–135; BP diastolic 32–77
--- NOTE | 2016-08-16 01:05 | NUR ---
ASSISTED PT TO RESTROOM 900 OUT. NO OTHER CHANGES IN STATUS AT THIS TIME. WILL CONTINUE TO MONITOR
--- NOTE | 2016-08-16 03:00 | NUR ---
REASSESSMENT COMPLETED. SYSTOLIC PRESSURE OCCASIONALLY DIPS INTO THE 80'S. WILL ATTEMPT TO WEEN DOPAMINE WHEN B/P IMPROVES. MAINTAINING 2 MCG AT THIS TIME.
--- NOTE | 2016-08-16 05:00 | NUR ---
BED BATH, DRESSING CHANGE, AND COMPLETE LINEN CHANGE COMPLETED. NO OTHER CHANGES IN STATUS AT THIS TIME. WILL CONTINUE TO MONITOR.
[2016-08-16 06:00] LABS: HEMATOCRIT 33.5 % (36.0-48.0); HEMOGLOBIN 10.6 g/dL (12-16); MCHC 31.6 g/dL (31.0-37.0); MCV 91.5 fL (80.0-100.0); MEAN PLATELET VOLUME 10.2 fL (7.4-10.4); RBC 3.66 10x6/uL (4.00-5.40); RDW 15.9 % (11.5-14.5); WBC 8.3 10x3/uL (4.8-10.8)
[2016-08-16 06:44] LABS: ALBUMIN 2.6 g/dL (3.4-5.0); ALKALINE PHOSPHATASE 61 U/L (46-116); ALT (SGPT) 27 U/L (10-68); BILIRUBIN - TOTAL 0.66 mg/dL (0.2-1.3); CALC OSMOLALITY 280 mosm/kg (275-300); CALCIUM 8.6 mg/dL (8.5-10.1); CHLORIDE - SERUM 102 mmol/L (98-107); CREATININE - SERUM 0.7 mg/dL (0.6-1.3); GLUCOSE 202 mg/dL (74-106); POTASSIUM - SERUM 4.2 mmol/L (3.5-5.1); SODIUM 138 mmol/L (136-145); UREA NITROGEN 11 mg/dL (7-18); eGFR NON AFRICAN AMERICAN 87 mL/min (90-120)
--- NOTE | 2016-08-16 07:15 | NUR ---
ASSESSMENT COMPLETE. AAO X4. DENIES PAIN. S1S2 NOTED, RADIAL AND PEDAL PULSES PALP. PEDAL PULSES WEAK. NSR. TPM SETTINGS VVI 60, SENSING V. VMA 10, SENSITIVITY 2.00. CLEAR RUL, RML, KERWIN. DIMINISHED LLL, RLL. 2L NC. ACTIVE BOWEL SOUNDS X4. OFFERED PATIENT BREAKFAST TRAY. GENERALIZED WEAKNESS. TRACE EDEMA X4 EXTREMETIES. MIDSTERNAL DRESSING CDI. SUBSTERNAL DRESSING CDI. RIGHT LEG DRESSINGS CDI. NOTED RECENT DRESSING CHANGE IN EARLY AM HOURS 08/16. LT SC CVL, SEE IV FLOWSHEET. PATIENT DENIES NEEDS. FOR OTHER ASSESSMENT FINDINGS SEE FLOWSHEET.
--- NOTE | 2016-08-16 08:15 | NUR ---
ASSISTED TO TOILET. DOCUMENTED ON I/O. ONCE BACK IN CHAIR, I/S COMPLETED X10, SHE CONSISTANTLY REACHED 750.
--- NOTE | 2016-08-16 08:27 | NUR ---
Nutrition follow-up: Diet: ADA consistent CHO PO intake remains poor to fair; no nausea, vomiting at this time Labs reviewed Wt: 160# Will continue to provide food choices and honor food preferences. RDN ordered Glucerna Shake with meals to increase kcal protein intake. RDN following.
--- NOTE | 2016-08-16 09:11 | NUR ---
PATIENT WALKED 500FT WITH PT. REQUESTS PAIN MEDICATION FOR BACK PAIN AND MILD INCISIONAL PAIN.
--- NOTE | 2016-08-16 10:34 | NUR ---
I/S AND FLUTTER VALVE ENCOURAGED. REACHED 750 ON I/S
--- NOTE | 2016-08-16 11:00 | NUR ---
DR. THOMAS AT BEDSIDE.
[2016-08-16] MEDS ORDERED: CORDARONE200 MG PO (11:05)
[2016-08-16] MEDS ORDERED: HEMOCYTE PLUS C1 CAP PO (11:05)
[2016-08-16] MEDS ORDERED: XOPENEX 0.0.63 MG/3 UPD (11:10)
[2016-08-16] MEDS ORDERED: BREO ELLIPTA 21 EACH INH (11:10)
[2016-08-16] MEDS ORDERED: ATROVENT 0.02%2.5 ML UPD (11:11)
--- NOTE | 2016-08-16 11:19 | NUR ---
Patient Name: ELOINA BAIRES Encounter No: [id number] : 1945 Primary Insurance: [facility] Anticipated DC Date: 08-16-2016 Planned Disposition: Home with family. External Planned Provider: DR THOMAS DCP follow-up note: CM WAS NOTIFIED OF PLAN FOR DISCHARGE TODAY. PATIENT STATED HER WILL DRIVE HER HOME AT DISCHARGE. SHE STATED SHE HAS ALL NEEDED DME AND DENIED NEED FOR HH OR REHAB SERVICES. SHE STATED SHE HAS HOME AND PORTABLE OXYGEN AND NEBULIZER AT HOME. DC IMM SIGNED AND PLACED IN PT'S CHART. PT VOICED NO DC NEEDS. CM WILL FOLLOW AND ASSIST WITH ANY DC NEEDS THEY ARISE. Aisha Maurer RN, CM
--- NOTE | 2016-08-20 08:46 | TEE ---
PATIENT:ELOINA BAIRES MEDICAL RECORD: [id number] LOCATION:[place] [address] AGE OF PATIENT: 71 ADMISSION DATE: 08/09/16 SEX: F REFERRING PHYSICIAN: INTERPRETING PHYSICIAN: ELVIS VALLE MD TRANSESOPHAGEAL ECHOCARDIOGRAM JOHN CHARGE Y INDICATIONS: CABG PREMEDICATIONS: PATIENT'S RESPONSE PROCEDURE DOPPLER MEASUREMENTS: LVIT LA PA RA LVOT RVOT Asc. Ao AV Gradient Peak AV Mean AV Area MV Gradient Peak MV Mean MV Area INTERPRETATION: LVd: 3.1 cm LVs: 1.8 cm Doppler: 2-D: COLOR FLOW DOPPLER NORMAL SALINE STUDY: MISCELLANOUS: DIAGNOSIS: PLAN: Etcher Electrolytic:1 Dr. Valle Patient Coordinator: 1 SHERON ALLRED COMMENTS: DATE OF SERVICE: 08/09/2016 Transesophageal echo evaluation of valvular structures during bypass surgery. FINDINGS: 1. Left ventricular chamber size is within normal limits. Left ventricular systolic function is normal. Overall ejection fraction estimated at 55%. 2. Left atrium, right atrium and right ventricular chamber sizes are within normal limits. TRANSESOPHAGEAL ECHOCARDIOGRAM REPORT [id number] MIKE BAIRES 3. Valvular structures have normal structure and motion. 4. Doppler interrogation reveals mild mitral regurgitation. No other valvular insufficiency or stenosis. 5. No evidence of pericardial effusion or left ventricular thrombus. TRANSINT:[id number] Voice Confirmation ID: [id number] DOCUMENT ID: [id number] at 0846 CC: [id number] DICTATION DATE: 08/10/16 1040 ESCROW SECRETARY: 08/11/16 0610 DIS IN 08/16/16 [place] [id number]
== END 2016-08-16 12:39 | disposition home or self-care (01) | DRG 235 ==
LOC: D.SDCHOLD 05:00 → D.CVICU 05:00 → D.ICU 05:00 → D.SDCHOLD 07:30 → D.ICU 09:01 → D.CVICU 08-11 16:04
PROVIDERS: ADMIT Internal Medicine Cardiovascular Disease
PROC: 021209W Bypass Coronary Artery, Three Arteries from Aorta with Autologous Venous Tissue, Open Approach (ICD-10-PCS; 2016-08-09)
PROC: 06BQ0ZZ Excision of Left Saphenous Vein, Open Approach (ICD-10-PCS; 2016-08-09)
PROC: 5A1221Z Performance of Cardiac Output, Continuous (ICD-10-PCS; 2016-08-09)
PROC: 02100AC Bypass Coronary Artery, One Artery from Thoracic Artery with Autologous Arterial Tissue, Open Approach (ICD-10-PCS; principal; 2016-08-09 07:30)
DX: I25.119 Atherosclerotic heart disease of native coronary artery with unspecified angina pectoris (principal); J95.821 Acute postprocedural respiratory failure; D62 Acute posthemorrhagic anemia; E87.0 Hyperosmolality and hypernatremia; J98.11 Atelectasis; I48.0 Paroxysmal atrial fibrillation; Y83.9 Surgical procedure, unspecified as the cause of abnormal reaction of the patient, or of later complication, without mention of misadventure at the time of the procedure; E83.39 Other disorders of phosphorus metabolism; K59.00 Constipation, unspecified; E66.9 Obesity, unspecified; Z68.30 Body mass index [BMI] 30.0-30.9, adult; E11.9 Type 2 diabetes mellitus without complications; J44.9 Chronic obstructive pulmonary disease, unspecified; J45.909 Unspecified asthma, uncomplicated; K21.9 Gastro-esophageal reflux disease without esophagitis; I10 Essential (primary) hypertension; E78.5 Hyperlipidemia, unspecified; M79.7 Fibromyalgia; E03.9 Hypothyroidism, unspecified; Z87.891 Personal history of nicotine dependence

== ENCOUNTER → 2016-09-02 08:54 | Outpatient (CLI) | payer MEDICARE ==
[2016-08-10 08:00] VITALS: BMI 31.8
[~2016-09-02 08:54] MED LIST changes: +ATROVENT 0.02%2.5 ML UPD; +BREO ELLIPTA 21 EACH INH; +CORDARONE200 MG PO; +FISH OIL 1,2001 CAP PO; +HEMOCYTE PLUS C1 CAP PO; +XOPENEX 0.0.63 MG/3 UPD
[2016-09-02 09:59] LABS: HEMATOCRIT 39.1 % (36.0-48.0); HEMOGLOBIN 12.5 g/dL (12-16); MCH 29.3 pg (26.0-34.0); MCV 91.6 fL (80.0-100.0); MEAN PLATELET VOLUME 9.6 fL (7.4-10.4); RBC 4.27 10x6/uL (4.00-5.40); WBC 7.5 10x3/uL (4.8-10.8)
[2016-09-02 10:18] LABS: CALC OSMOLALITY 274 mosm/kg (275-300); CALCIUM 9.4 mg/dL (8.5-10.1); CARBON DIOXIDE 28.6 mmol/L (21.0-32.0); CHLORIDE - SERUM 101 mmol/L (98-107); CREATININE - SERUM 0.8 mg/dL (0.6-1.3); GLUCOSE 137 mg/dL (74-106); POTASSIUM - SERUM 4.2 mmol/L (3.5-5.1); SODIUM 137 mmol/L (136-145); UREA NITROGEN 10 mg/dL (7-18); eGFR NON AFRICAN AMERICAN 75 mL/min (90-120)
== END | disposition home or self-care (01) ==
LOC: D.RAD 08:54
PROVIDERS: Internal Medicine Cardiovascular Disease
DX: Z95.1 Presence of aortocoronary bypass graft (principal); D64.9 Anemia, unspecified; J90 Pleural effusion, not elsewhere classified

== ENCOUNTER → 2017-02-22 | Emergency (ER) | payer MEDICARE ==
[2016-08-10 08:00] VITALS: BMI 31.8
[2017-02-22 12:27] LABS: BASOPHILS 0.3 % (0-2); HEMATOCRIT 42.7 % (36.0-48.0); HEMOGLOBIN 14.1 g/dL (12-16); IMMATURE GRANULOCYTES 0.3 % (0-5); LYMPHOCYTES 24.7 % (15-50); MCH 30.9 pg (26.0-34.0); MCV 93.6 fL (80.0-100.0); MEAN PLATELET VOLUME 9.7 fL (7.4-10.4); NEUTROPHILS 63.7 % (40-80); RBC 4.56 10x6/uL (4.00-5.40); RDW 12.6 % (11.5-14.5); WBC 7.5 10x3/uL (4.8-10.8)
[2017-02-22 12:43] LABS: APPEARANCE CLEAR (CLEAR); BILIRUBIN NEGATIVE (NEGATIVE); COLOR YELLOW (YELLOW); GLUCOSE 50 mg/dL (NEGATIVE); KETONE NEGATIVE (NEGATIVE); LEUKOCYTE ESTERASE NEGATIVE (NEGATIVE); NITRITE NEGATIVE (NEGATIVE); PROTEIN NEGATIVE (NEGATIVE); UROBILINOGEN NORMAL (NORMAL)
[2017-02-22 12:43] LABS: PLATELET COUNT 191 10x3/uL (130-400)
[2017-02-22 12:44] LABS: ALBUMIN 4.1 g/dL (3.4-5.0); ANION GAP 12.1 mmol/L (8-16); BILIRUBIN - TOTAL 0.3 mg/dL (0.2-1.3); CALCIUM 9.3 mg/dL (8.5-10.1); CARBON DIOXIDE 29.1 mmol/L (21.0-32.0); CREATININE - SERUM 0.8 mg/dL (0.6-1.3); POTASSIUM - SERUM 4.2 mmol/L (3.5-5.1); PROTEIN - SERUM 7.5 g/dL (6.4-8.2)
== END | disposition home or self-care (01) ==
LOC: D.ER 11:28
PROVIDERS: Emergency Medicine
DX: I10 Essential (primary) hypertension (principal); J44.9 Chronic obstructive pulmonary disease, unspecified

== ENCOUNTER 2017-05-13 16:43 | Outpatient (CLI) | payer MEDICARE ==
[2016-08-10 08:00] VITALS: BMI 31.8
== END 2017-05-13 23:59 | disposition home or self-care (01) ==
LOC: D.MAMMO 16:43
DX: Z12.31 Encounter for screening mammogram for malignant neoplasm of breast (principal)

== ENCOUNTER 2017-09-29 15:51 | Emergency (ER) | payer MEDICARE ==
[2016-08-10 08:00] VITALS: BMI 31.8
[2017-09-29 16:31] LABS: BASOPHILS 0.3 % (0-2); EOSINOPHILS 3.9 % (0-7); HEMATOCRIT 39.9 % (36.0-48.0); HEMOGLOBIN 13.1 g/dL (12-16); IMMATURE GRANULOCYTES 0.4 % (0-5); LYMPHOCYTES 27.9 % (15-50); MCH 29.6 pg (26.0-34.0); MCHC 32.8 g/dL (31.0-37.0); MCV 90.1 fL (80.0-100.0); MEAN PLATELET VOLUME 9.5 fL (7.4-10.4); MONOCYTES 7.5 % (2-11); PLATELET COUNT 214 10x3/uL (130-400); RBC 4.43 10x6/uL (4.00-5.40); RDW 12.6 % (11.5-14.5); WBC 7.5 10x3/uL (4.8-10.8)
[2017-09-29 16:32] LABS: APPEARANCE CLEAR (CLEAR); BILIRUBIN NEGATIVE (NEGATIVE); COLOR YELLOW (YELLOW); GLUCOSE NEGATIVE (NEGATIVE); KETONE NEGATIVE (NEGATIVE); NITRITE NEGATIVE (NEGATIVE); PROTEIN NEGATIVE (NEGATIVE); SPECIFIC GRAVITY 1.005 (1.005-1.020); UROBILINOGEN NORMAL (NORMAL)
[2017-09-29 16:34] LABS: BACTERIA FEW /hpf (NONE SEEN); EPITHELIAL CELLS 0-5 /hpf (0-5); WHITE CELLS - URINE 0-5 /hpf (0-5)
[2017-09-29 16:40] LABS: APTT 28.9 SECONDS (22.8-39.4); INR 1.07 (0.85-1.17); PROTIME 13.5 SECONDS (11.6-15.0)
[2017-09-29 16:46] LABS: ANION GAP 11.9 mmol/L (8-16); BILIRUBIN - TOTAL 0.3 mg/dL (0.2-1.3); CREATININE - SERUM 0.9 mg/dL (0.6-1.3); POTASSIUM - SERUM 3.9 mmol/L (3.5-5.1); PROTEIN - SERUM 7.6 g/dL (6.4-8.2)
== END 2017-09-29 21:00 | disposition other institution (70) ==
LOC: D.ER 15:51
PROVIDERS: Emergency Medicine
DX: G45.9 Transient cerebral ischemic attack, unspecified (principal); I63.9 Cerebral infarction, unspecified; J44.9 Chronic obstructive pulmonary disease, unspecified; I10 Essential (primary) hypertension

== ENCOUNTER → 2018-04-24 10:19 | Outpatient (CLI) | payer MEDICARE ==
[2016-08-10 08:00] VITALS: BMI 31.8
== END | disposition home or self-care (01) ==
LOC: D.US 10:19
DX: I65.23 Occlusion and stenosis of bilateral carotid arteries (principal)

== ENCOUNTER → 2018-05-02 16:27 | Outpatient (CLI) | payer MEDICARE ==
[2016-08-10 08:00] VITALS: BMI 31.8
[~2018-05-02 16:27] MED LIST changes: +ELIQUIS5 MG PO; +POTASSIUM CHLO10 ME1 PO; +PRAVACHOL80 MG PO; +SYMBICORT 16010.2 GM INH; +[UNRECOGNIZED DRUG - OTHER] PO
== END | disposition home or self-care (01) ==
LOC: D.CT 16:27
DX: I65.23 Occlusion and stenosis of bilateral carotid arteries (principal)

== ENCOUNTER 2018-05-24 05:15 | Inpatient (IN) | payer MEDICARE ==
[2018-05-22 12:43] LABS: ALBUMIN 3.8 g/dL (3.4-5.0); ALKALINE PHOSPHATASE 86 U/L (46-116); ALT (SGPT) 14 U/L (10-68); BILIRUBIN - TOTAL 0.26 mg/dL (0.2-1.3); CALC OSMOLALITY 274 mosm/kg (275-300); CALCIUM 9.1 mg/dL (8.5-10.1); CARBON DIOXIDE 29.5 mmol/L (21.0-32.0); CHLORIDE - SERUM 103 mmol/L (98-107); CREATININE - SERUM 0.7 mg/dL (0.6-1.3); GLUCOSE 77 mg/dL (74-106); POTASSIUM - SERUM 4.3 mmol/L (3.5-5.1); PROTEIN - SERUM 7.3 g/dL (6.4-8.2); SODIUM 139 mmol/L (136-145); UREA NITROGEN 6 mg/dL (7-18); eGFR NON AFRICAN AMERICAN 87 mL/min (90-120)
[2018-05-22 12:47] LABS: APPEARANCE CLEAR (CLEAR); BILIRUBIN NEGATIVE (NEGATIVE); COLOR YELLOW (YELLOW); GLUCOSE NEGATIVE (NEGATIVE); HEMOGLOBIN 12.7 g/dL (12-16); KETONE NEGATIVE (NEGATIVE); MCH 28.8 pg (26.0-34.0); MCHC 32.6 g/dL (31.0-37.0); MCV 88.4 fL (80.0-100.0); MEAN PLATELET VOLUME 9.6 fL (7.4-10.4); NITRITE NEGATIVE (NEGATIVE); PROTEIN NEGATIVE (NEGATIVE); RBC 4.41 10x6/uL (4.00-5.40); RDW 13.8 % (11.5-14.5); UROBILINOGEN NORMAL (NORMAL); WBC 7.7 10x3/uL (4.8-10.8)
[2018-05-22 12:48] LABS: BACTERIA FEW /hpf (NONE SEEN); EPITHELIAL CELLS 0-5 /hpf (0-5); MUCUS <1+ /lpf (NONE SEEN); RED CELLS - URINE OCC /hpf (0-5)
[2018-05-22 13:18] LABS: APTT 30.4 SECONDS (22.8-39.4); INR 1.1 (0.85-1.17); PROTIME 13.7 SECONDS (11.6-15.0)
[~2018-05-24] VITALS: Ht 152.4 cm; Wt 68.1 kg
[2018-05-24] VITALS (32 sets, daily range): BP systolic 109–159; BP diastolic 35–68; Ht 152.4 cm; Wt 68.1 kg
--- NOTE | ~2018-05-24 | OP ---
PATIENT NAME: ELOINA BAIRES MEDICAL RECORD: [id number] :45 [facility] AD[facility]ION DATE:05/24/18 SURGEON: SHARAN THOMAS MD DATE OF OPERATION: 05/24/2018 SURGEON: Sharan Thomas MD ANESTHESIA: General endotracheal, Dr. Diaz. OPERATION PERFORMED: Right carotid endarterectomy with patch angioplasty. PREOPERATIVE DIAGNOSIS: Critical right internal carotid artery stenosis. POSTOPERATIVE DIAGNOSIS: Critical right internal carotid artery stenosis. INDICATION FOR OPERATION: Critical right internal carotid artery stenosis. FINDINGS AT OPERATION: Critical right internal carotid artery stenosis, greater than 90%. There were no EEG changes with clamping or unclamping of the carotid artery. ESTIMATED BLOOD LOSS: Less than 100 mL. DESCRIPTION OF PROCEDURE: After informed consent, adequate preoperative medication evaluation, the patient was brought to the operating room, placed on the table in the supine position. After induction of general endotracheal anesthesia and application of appropriate monitoring devices, the right neck was prepped and draped in sterile field, utilizing Betadine scrub, alcohol, and Betadine solution. Betadine-impregnated drape was also used. An oblique incision was made in the skin crease. Dissection carried down the fascia. Hemostasis was maintained with electrocautery. Facial vein was identified and divided. Utilizing sharp dissection, the common carotid, internal and external carotid arteries were dissected free of surrounding areas, protecting the neurological structures. The patient was given a calculated dose of heparin. After 3 minutes, clamps were applied. After 2 minutes, no EEG change. The arteriotomy was made and extended with Juarez scissors. Artery underwent endarterectomy sharply. Artery underwent extensive debridement and irrigation. Utilizing a vascular patch, a running 7-0 Prolene suture, the arteriotomy was closed with a patch angioplasty technique. All maneuvers to remove trapped air were performed. The clamps removed sequentially. There were no EEG changes. The patient was given a calculated dose of protamine to reverse the heparin. Hemostasis was achieved. A #7 Dane-Tafoya drain was left in the depths of wound and brought through the base of the neck. Neck was again irrigated. Instrument count and sponge count were correct times 2. Neck was closed in layers utilizing 3-0 Vicryl on the platysma, 5-0 subcuticular Monocryl on the skin. Sterile dressings were applied. The patient tolerated the procedure well and was transferred to CV ICU in satisfactory condition. TRANSINT:[id number] Voice Confirmation ID: [id number] DOCUMENT ID: [id number] OPERATIVE REPORT [id number] ELOINA BAIRES EDWARD MD CC: [id number] DICTATION DATE: 05/24/18 1250 METAL MOLDER: 05/24/18 1348 ADM IN [place] [id number] [place] [address]
--- NOTE | ~2018-05-24 | MORECARE ---
CASE MANAGEMENT DISCHARGE SUMMARY PATIENT: ELOINA KINGSLEY UNIT: [id number] ADM DATE: 05/24/18 AGE: 73 : 45 SEX: F ROOM/BED: D[facility] AUTHOR: SHELIA,DOC PHYSICIAN: REFERRING PHYSICIAN: WHIT THOMAS MD DATE OF SERVICE: 05/26/18 Discharge Plan Patient Name: ELOINA KINGSLEY Facility: [facility]:[place] : 1945 Planned Disposition: Home Anticipated Discharge Date: Discharge Date: 05/26/2018 Expected LOS: Initial Reviewer: [email or web address] Initial Review Date: 05/26/2018 Generated: 05/26/18 6:53 pm Comments DCP- Discharge Planning Updated by [email or web address]: Jody Erwin on 05/26/18 4:[address] Late Entry 05/26/18 @ 1020 Patient Name: ELOINA KINGSLEY Admission Status: Elective Accout number: [id number] Admission Date: 05-24-2018 : 1945 Admission Diagnosis:OCCLUSION AND STENOSIS OF RIGHT CAROTID ARTERY Attending: WHIT THOMAS Current LOS: 2 Anticipated DC Date: Planned Disposition: Home Primary Insurance: [facility] MEDICARE SOLUTIONS Discharge Planning Comments: CM met with patient and spouse at bedside after obtaining verbal consent. Patient states she plans on returning home after discharge with her . Patient states she will have family transport him home via private vehicle. Patient denies any discharge needs at this time. IMM explained and served 05/26/18 @ 1030 CM will continue to follow and assist as needed for discharge planning / needs. Records Analyst: Jody Erwin DCPIA - Discharge Planning Initial Assessment Updated by [email or web address]: Jody Erwin on 05/26/18 5:50 pm * Is the patient Alert and Oriented? Yes * How many steps to enter\exit or inside your home? * PCP arias * Pharmacy [facility] * Preadmission Environment Home with Family * ADLs Independent * Equipment Nebulizer * Other Equipment 02 * List name and contact numbers for known caregivers / representatives who currently or will assist patient after discharge: Chao Kingsley [phone] * Verbal permission to speak to the caregivers and representatives has been obtained from the patient. Yes * Community resources currently utilized None * Additional services required to return to the preadmission environment? No * Can the patient safely return to the preadmission environment? Yes * Has this patient been hospitalized within the prior 30 days at any hospital? No Patient Name: ELOINA KINGSLEY Page [id number] at 1753 All edits/amendments must be made on the electronic document DICTATION DATE: 05/26/181752 INTERNET MARKETING INTERN: MAIA 05/26/181752 RPT#: [id number] DC DATE:05/26/18 STATUS: DIS IN [facility] [address] [place] [address] END OF REPORT
--- NOTE | ~2018-05-24 | HP ---
PATIENT: ELOINA BAIRES MEDICAL RECORD: [id number] ACCOUNT: [id number] LOCATION:[facility] : [birth year] ADMISSION DATE: 05/24/18 PCP: WHIT THOMAS MD HISTORY AND PHYSICAL EXAMINATION ELOINA Rice (73yo, F) ID# [id number]. Date/Time05/04/2018 10:01BTCKO[facility] Dept.NPP_[facility] ClinicProviderEDNATE THOMAS MDInsuranceMed Primary: [facility] (MEDICARE REPLACEMENT/ADVANTAGE - PPO) Insurance # : [id number] Policy/Group # : [id number] PCP : GERGORY ALEX Referring Provider Name : GREGORY ALEX Employer Name : RETIRED Prescription: ORX - Member is eligible. Chief Complaint follow up for test results 1 WEEK F/U WITH CTA CAROTIDS Patient's Care Team Primary Care Provider (): GREGORY ALEX: [address] [place] [address], , Referring Provider (): GREGORY ALEX: [address] [place] [address], , Patient's Pharmacies [facility] ([facility]): [address] [place] [id number], , [facility] ([facility], [place]): [phone] [facility] [id number], , Vitals BP:138/78 sitting L arm 05/04/2018 10:20 amHR:96 REG 05/04/2018 10:20 amHt:5 ft 05/04/2018 10:13 amWt:145 lbs 05/04/2018 10:21 amBMI:28.3 05/04/2018 10:21 amAllergies Reviewed Allergies CECLORCEFACLORCODEINEDOXYCYCLINEKEFLEXLEVAQUINLEVOFLOXACINPENICILLINSZYRTECMedication s Reviewed Medications ALPRAZolam 0.5 mg oqzexz04/03/18 filledPRESCRIPTION SOLUTIONSamiodarone 200 mg tudzim33/18/17 filledPRESCRIPTION SOLUTIONSamLODIPine 10 mg /27/18 filledPRESCRIPTION SOLUTIONSaspirin 81 mg chewable disuxl27/08/18 enteredCeasar MartinezBreo Ellipta 200 mcg-25 mcg/dose powder for inhalation Inhale 1 blister(s) every day by inhalation route for 90 days.03/21/17 filledPRESCRIPTION SOLUTIONScarisoprodol 350 mg /29/18 filledPRESCRIPTION SOLUTIONScitalopram 20 mg tablet start filledJamie Hughescitalopram 40 mg tablet stop enteredGustavomiayush Juanclopidogrel 75 mg tablet stop enteredGustavomiayush MartinezHYDROcodone 5 mg-acetaminophen 325 mg hvbyzq84/05/18 filledPRESCRIPTION SOLUTIONSipratropium bromide 0.02 % solution for rboylqlrmg61/20/17 filledPRESCRIPTION SOLUTIONSlevalbuterol 0.63 mg/3 mL solution for nebulization start filledGustavomiayush Martinezlevothyroxine 50 mcg /25/18 filledPRESCRIPTION SOLUTIONSlosartan 100 mg /18/18 filledPRESCRIPTION SOLUTIONSmeloxicam 7.5 mg uzqaxc21/08/18 enteredGustavomiayush HughesmetFORMIN 500 mg /18/18 filledPRESCRIPTION SOLUTIONSmontelukast 10 mg bxfayr52/15/18 filledPRESCRIPTION SOLUTIONSpantoprazole 40 mg tablet,delayed tunwewh75/12/18 filledPRESCRIPTION SOLUTIONSpotassium chloride ER 20 mEq tablet,extended HISTORY AND PHYSICAL [id number] ELOINA BAIRES A release(part/cryst)01/11/18 filledPRESCRIPTION SOLUTIONSpravastatin 40 mg tablet stop enteredJamiayush Hughespravastatin 80 mg /25/18 filledPRESCRIPTION SOLUTIONSVaccines Reviewed Vaccines Vaccine TypeDateAmt.RouteSiteLot #Mfr.Exp. DateDate on VISVIS GivenVaccinatorInfluenzainfluenza, high dose [id number], seasonal, tluucrqngw71/2011Pneumococcalpneumococcal polysaccharide [id number] vaccines listed in Documents: #[id number], #[id number] could not be added to this patient's chart. Please review these documents and add these vaccines to the patient's chart manually as needed. 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 Acute posthemorrhagic anemia Paroxysmal atrial fibrillation Chest pain Fever Acute urinary tract infection Coronary arteriosclerosis Joint pain Diabetes mellitus Chronic obstructive lung disease Coronary arteriosclerosis in redding artery Asthma Pneumonia Gastroesophageal reflux disease Carotid artery occlusion Dyspnea Allergic rhinitis Family History Reviewed Family History Non-contributory.NOTHING LISTEDSocial History Reviewed Social History General Occupation: RETIRED (Notes: 2008) Marital status: Smoking Status: Never smoker (Notes: NONSMOKER) Alcohol intake: None Caffeine intake: Moderate (Notes: COFFEE 2 CUPS PD) Surgical History Reviewed Surgical History Other - 08/2013 - PTCA/Stent Other - 06/07/2012 - cholecystectomy by Dr Aguilar Cholecystectomy, laparoscopic - 06/07/2012 Other - 2008 - CLOGGED ARTERY IN NECK HISTORY AND PHYSICAL [id number] ELOINA BAIRES Anesth hysterectomy - 1975 08/03/16 no PA required for 08/09/16 sx per Monae Enriquez @ [facility]. 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 HPI Dyspnea Reported by patient. Associated Symptoms: no chest pain; no palpitations; no orthopnea; no PND; no fever; no chills; no wheezing; no dietary indiscretion; no sputum production; no hemoptysis; no weight gain; no dyspepsia Severe right internal carotid artery stenosis ROS Patient reports no fever, no night sweats, no significant weight gain, no significant weigh t loss, and no exercise intolerance. She reports no dry eyes, no irritation, and no vision change. She reports no difficulty hearing and no ear pain. She reports no frequent nosebleeds and no nose/sinus problems. She reports no sore throat, no bleeding gu m s, no snoring, no dry mouth, no mouth ulcers, no oral abnormalities, and no teeth problems. She reports no chest pain, no arm pain on exertion, no shortness of breath when walking, no shortness of breath when lying down, no palpitations, and no known hear t murmur. She reports no cough, no wheezing, no shortness of breath, and no coughing up blood. She reports no abdominal pain, no vomiting, normal appetite, no diarrhea, not vomiting blood, no nausea, and no constipation. She reports no incontinence, no dif f iculty urinating, no hematuria, and no increased frequency. She reports no muscle aches, no muscle weakness, no arthralgias/joint pain, no back pain, and no swelling in the extremities. She reports no abnormal mole, no jaundice, and no rashes. She reports no loss of consciousness, no weakness, no numbness, no seizures, no dizziness, and no headaches. She reports no depression, no sleep disturbances, feeling safe in relationship, and no alcohol abuse. She reports no fatigue. She reports no swollen glands an d no bruising. She reports no runny nose, no sinus pressure, no itching, no hives, and no frequent sneezing. ROS as noted in the HPI Physical Exam Patient is a 73-year-old female. HISTORY AND PHYSICAL [id number] ELOINA BAIRES Constitutional: General Appearance: morbidly obese. Level of Distress: no acute distress. Ambulation: ambulating normally. Ears: Cerumen negative. Canal: no erythema or swelling. Tympanic Membrane: no bulging or fluid and perforated. Nasal: Nasal Mucosa: normal, no discharge, and pink and moist. Septum: not markedly deformed. Oropharynx: Lips, Teeth, and Gums normal dentition and lips. Oral Mucosa no ulcer, mass, inflammation, swelling, or leukoplakia and moist. Palate: normal hard palate and soft palate. Tongue: no erythema, lesions, enlargement, or swelling. Tonsils: no enlar gement or lesions. Posterior Pharynx no enlargement, erythema, exudate, ulcers, mass, cobblestoning, or white patches. Neck: Neck: supple, trachea midline, no masses, and Full ROM. Thyroid: no enlargement or nodules and non-tender. Jugular Veins: no jugul ar venous distention or de la paz a waves present and normal jugular venous pressure. Lungs: Respiratory effort: unlabored. Inspection: normal curve and chest wall expansion; no deformity, tenderness, or swelling; and tactile fremitus present and equal on both sides. Auscultation: no wheezing, rales/crackles, or rhonchi and decreased breath sounds,left base. Percussion: dullness or flatness at the left lower lung. Cardiovascular: Precordial Exam: non displaced foca l PMI. Heart Rate And Rhythm: normal heart rate and rhythm. Heart Sounds: no gallop, click, physiologically split S2, or pericardial friction rub and normal s1. Systolic Murmur: no systolic murmurs. Diastolic Murmur: no diastolic murmurs. Observation/Palp ation of peripheral vascular system: no cyanosis or varicosity changes and normal dorsalis pedis and posterior tibialis. Abdomen: Inspection and Palpation: no tenderness or masses and soft and non-distended. Liver: non-tender and no hepatomegaly. Spleen: n on-tender and no splenomegaly. Bowel Sounds: normal and no abdominal bruits. Lymphatic: no cervical lymph enlargement, axillary LAD, inguinal LAD, femoral LAD, supraclavicular LAD, or popliteal LAD. Musculoskeletal:: Motor Strength and Tone: normal bulk, tone, and motor strength. Gait and Station: normal gait, station, and tandem gait. Joints, Bones, and Muscles: no contractures, malalignment, tenderness, scoliosis, kyphosis, or bony abnormalities and normal movement of all extremities. Extremities: Inspection/Palpation of digits and nails: no clubbing, cyanosis, petechiae, ischemia, edema, or nodular lesions. Skin: Inspection and palpation: no rash, lesions, jaundice, ulcer, erythema, or induration and normal turgor; sternal wound intact, and lower extremity wound healed. Neurologic: Mental Status/Orientation: oriented to person, place, problem/situation, and time. Mood/Affect: normal mood and affect. Sensation sensation normal. Cranial Nerves cranial nerves II - XII intact. Deep Tendon Reflexes upper extremities positive and lower extremities positive. Assessment / Plan HISTORY AND PHYSICAL [id number] ELOINA BAIRES Severe right internal carotid artery stenosis not totally occluded 1. Carotid artery occlusion I65.29: Occlusion and stenosis of unspecified carotid artery 2. Right carotid artery stenosis I65.21: Occlusion and stenosis of right carotid artery Discussion Notes Severe right internal carotid artery stenosis she would benefit from right carotid endarterectomy. I have discussed her disease process with her in de tail as well as the alternative methods of treatment. We discussed right carotid endarterectomy including the expected benefits and risk which include bleeding, infection, stroke, , and the imponderables. She understands all of the above and wishes t o proceed with planned surgery. Discontinue her eliquis one week before surgery and start Plavix today WHIT THOMAS MD at 1001 CC: [id number] DICTATION DATE: 05/04/18 1010 CLINIC NURSE: MAIA 05/12/18 1413 PRE IN [facility] [address] [place] [address]
--- NOTE | ~2018-05-24 | MORECARE ---
CASE MANAGEMENT DISCHARGE SUMMARY PATIENT: ELOINA KINGSLEY UNIT: [id number] ADM DATE: 05/24/18 AGE: 73 : 45 SEX: F ROOM/BED: D[facility] [place] AUTHOR: SHELIA,DOC PHYSICIAN: REFERRING PHYSICIAN: WHIT THOMAS MD DATE OF SERVICE: 05/26/18 Discharge Plan Patient Name: ELOINA KINGSLEY Facility: [facility]:[place] : 1945 Planned Disposition: Home Anticipated Discharge Date: Discharge Date: 05/26/2018 Expected LOS: Initial Reviewer: [email or web address] Initial Review Date: 05/26/2018 Generated: 05/26/18 7:01 pm Comments DCP- Discharge Planning Updated by [email or web address]: Jody Erwin on 05/26/18 4:[address] Late Entry 05/26/18 @ 1020 Patient Name: ELOINA KINGSLEY Admission Status: Elective Accout number: [id number] Admission Date: 05-24-2018 : 1945 Admission Diagnosis:OCCLUSION AND STENOSIS OF RIGHT CAROTID ARTERY Attending: WHIT THOMAS Current LOS: 2 Anticipated DC Date: Planned Disposition: Home Primary Insurance: [facility] MEDICARE SOLUTIONS Discharge Planning Comments: CM met with patient and spouse at bedside after obtaining verbal consent. Patient states she plans on returning home after discharge with her . Patient states she will have family transport him home via private vehicle. Patient denies any discharge needs at this time. IMM explained and served 05/26/18 @ 1030 CM will continue to follow and assist as needed for discharge planning / needs. Volunteer Specialist: Jody Erwin DCPIA - Discharge Planning Initial Assessment Updated by [email or web address]: Jody Erwin on 05/26/18 5:50 pm * Is the patient Alert and Oriented? Yes * How many steps to enter\exit or inside your home? * PCP arias * Pharmacy [facility] * Preadmission Environment Home with Family * ADLs Independent * Equipment Nebulizer * Other Equipment 02 * List name and contact numbers for known caregivers / representatives who currently or will assist patient after discharge: Chao Kingsley [phone] * Verbal permission to speak to the caregivers and representatives has been obtained from the patient. Yes * Community resources currently utilized None * Additional services required to return to the preadmission environment? No * Can the patient safely return to the preadmission environment? Yes * Has this patient been hospitalized within the prior 30 days at any hospital? No Coverage Notice Reviewer: [id number] Emy Erwin Notice Issued Date-Time: 05/26/2018 10:30 Notice Type: IM Discharge Notice Notice Delivered To: Patient Relationship to Patient: Self Pattern Hanger Name: Delivery Method: HAND - Hand Delivered Sammie Days: Prior Verbal Notification: Recipient Understood Notice: Yes Recipient Signature: Yes Med Rec Note Co-signed by Attending: Coverage Notice Comment: Last DP export: 05/26/18 4:53 Patient Name: ELOINA KINGSLEY Page [id number] at 1801 All edits/amendments must be made on the electronic document DICTATION DATE: 05/26/181799 CATALYST CONCENTRATION OPERATOR: MAIA 05/26/18 1800 RPT#: [id number] DC DATE:05/26/18 STATUS: DIS IN [facility] [address] [place] [address] END OF REPORT
[2018-05-25] VITALS (61 sets, daily range): BP systolic 105–149; BP diastolic 35–76
[2018-05-26] VITALS (14 sets, daily range): BP systolic 115–148; BP diastolic 44–57
[2018-05-26 06:15] LABS: HEMATOCRIT 34.6 % (36.0-48.0); MCHC 31.8 g/dL (31.0-37.0); MEAN PLATELET VOLUME 9.5 fL (7.4-10.4); RBC 3.93 10x6/uL (4.00-5.40); RDW 13.7 % (11.5-14.5); WBC 6.8 10x3/uL (4.8-10.8)
[2018-05-26 06:32] LABS: ALKALINE PHOSPHATASE 71 U/L (46-116); ALT (SGPT) 12 U/L (10-68); BILIRUBIN - TOTAL 0.45 mg/dL (0.2-1.3); CALC OSMOLALITY 278 mosm/kg (275-300); CALCIUM 8.6 mg/dL (8.5-10.1); CARBON DIOXIDE 34.5 mmol/L (21.0-32.0); CHLORIDE - SERUM 100 mmol/L (98-107); CREATININE - SERUM 0.7 mg/dL (0.6-1.3); POTASSIUM - SERUM 3.2 mmol/L (3.5-5.1); PROTEIN - SERUM 6.7 g/dL (6.4-8.2); SODIUM 139 mmol/L (136-145); UREA NITROGEN 9 mg/dL (7-18); eGFR NON AFRICAN AMERICAN 87 mL/min (90-120)
[2018-05-26 06:33] LABS: GLUCOSE 129 mg/dL (74-106)
== END 2018-05-26 13:19 | disposition home or self-care (01) | DRG 39 ==
LOC: D.CVICU 05:15 → D.SDCHOLD 05:15 → D.CVICU 10:38
PROVIDERS: Internal Medicine Cardiovascular Disease
PROC: 03UK0JZ Supplement Right Internal Carotid Artery with Synthetic Substitute, Open Approach (ICD-10-PCS; 2018-05-24)
PROC: 03CK0ZZ Extirpation of Matter from Right Internal Carotid Artery, Open Approach (ICD-10-PCS; principal; 2018-05-24 08:30)
DX: I65.21 Occlusion and stenosis of right carotid artery (principal); I25.119 Atherosclerotic heart disease of native coronary artery with unspecified angina pectoris; J44.9 Chronic obstructive pulmonary disease, unspecified; K21.9 Gastro-esophageal reflux disease without esophagitis; I10 Essential (primary) hypertension; I48.0 Paroxysmal atrial fibrillation; I25.10 Atherosclerotic heart disease of native coronary artery without angina pectoris; E11.9 Type 2 diabetes mellitus without complications; Z86.73 Personal history of transient ischemic attack (TIA), and cerebral infarction without residual deficits

== ENCOUNTER 2018-06-05 11:02 | Emergency (ER) | payer MEDICARE ==
[2018-06-05 11:58] LABS: BASOPHILS 0.1 % (0-2); EOSINOPHILS 4.5 % (0-7); HEMOGLOBIN 13.9 g/dL (12-16); IMMATURE GRANULOCYTES 0.4 % (0-5); LYMPHOCYTES 23.7 % (15-50); MCH 28.8 pg (26.0-34.0); MCHC 32.3 g/dL (31.0-37.0); NEUTROPHILS 64.3 % (40-80); RBC 4.83 10x6/uL (4.00-5.40); RDW 13.9 % (11.5-14.5); WBC 7.6 10x3/uL (4.8-10.8)
[2018-06-05 11:59] LABS: PLATELET COUNT 249 10x3/uL (130-400)
[2018-06-05 12:07] LABS: APTT 30.6 SECONDS (22.8-39.4); INR 1.01 (0.85-1.17); PROTIME 12.8 SECONDS (11.6-15.0)
[2018-06-05 12:16] LABS: ALKALINE PHOSPHATASE 96 U/L (46-116); ALT (SGPT) 16 U/L (10-68); BILIRUBIN - TOTAL 0.41 mg/dL (0.2-1.3); CALC OSMOLALITY 276 mosm/kg (275-300); CALCIUM 8.8 mg/dL (8.5-10.1); CARBON DIOXIDE 31.3 mmol/L (21.0-32.0); CHLORIDE - SERUM 99 mmol/L (98-107); CREATININE - SERUM 0.8 mg/dL (0.6-1.3); GLUCOSE 110 mg/dL (74-106); POTASSIUM - SERUM 3.8 mmol/L (3.5-5.1); PROTEIN - SERUM 8.4 g/dL (6.4-8.2); SODIUM 139 mmol/L (136-145); UREA NITROGEN 7 mg/dL (7-18); eGFR NON AFRICAN AMERICAN 74 mL/min (90-120)
[2018-06-05 12:25] LABS: CKMB 0.1 U/L (0.0-3.6); CREATINE KINASE 104 UL (21-215); MAGNESIUM - SERUM 2.1 mg/dL (1.8-2.4)
[2018-06-05 12:29] LABS: TROPONIN-I < 0.017 ng/mL (0.000-0.060)
== END 2018-06-05 15:39 | disposition home or self-care (01) ==
LOC: D.ER 11:02
PROVIDERS: Family Medicine
DX: I10 Essential (primary) hypertension (principal); Z86.73 Personal history of transient ischemic attack (TIA), and cerebral infarction without residual deficits; E11.9 Type 2 diabetes mellitus without complications; J44.9 Chronic obstructive pulmonary disease, unspecified; K21.9 Gastro-esophageal reflux disease without esophagitis

== ENCOUNTER → 2019-01-04 09:00 | Outpatient (CLI) | payer MEDICARE ==
[2018-06-05 11:28] VITALS: BMI 27.5
[~2019-01-04 09:00] MED LIST changes: +CATAPRES0.1 MG PO
== END | disposition home or self-care (01) ==
LOC: D.MAMMO 09:00
PROVIDERS: ATTEND Family Medicine
DX: Z12.31 Encounter for screening mammogram for malignant neoplasm of breast (principal)

== ENCOUNTER → 2019-01-16 09:35 | Outpatient (CLI) | payer MEDICARE ==
[2018-06-05 11:28] VITALS: BMI 27.5
== END | disposition home or self-care (01) ==
LOC: D.HCCARDIO 09:35
PROVIDERS: ATTEND Internal Medicine Cardiovascular Disease
DX: I25.10 Atherosclerotic heart disease of native coronary artery without angina pectoris (principal)

== ENCOUNTER → 2019-06-08 10:00 | Outpatient (CLI) | payer MEDICARE ==
[2018-06-05 11:28] VITALS: BMI 27.5
== END | disposition home or self-care (01) ==
LOC: D.US 10:00
PROVIDERS: ATTEND Internal Medicine Cardiovascular Disease
DX: I65.23 Occlusion and stenosis of bilateral carotid arteries (principal)

== ENCOUNTER 2020-01-23 10:15 | Outpatient (CLI) | payer MEDICARE ==
[2018-06-05 11:28] VITALS: BMI 27.5
== END 2020-01-23 10:16 | disposition home or self-care (01) ==
LOC: D.MAMMO 10:15
PROVIDERS: ATTEND Family Medicine
DX: Z12.31 Encounter for screening mammogram for malignant neoplasm of breast (principal)

== ENCOUNTER 2020-02-20 01:48 | Observation (INO) | payer MEDICARE ==
[2020-02-20] VITALS (7 sets, daily range): BP systolic 97–156; BP diastolic 26–72; Ht 152.4 cm; Wt 68.2 kg
[~2020-02-20] VITALS: Ht 152.4 cm; Wt 68.2 kg
--- NOTE | ~2020-02-20 | HEMODYNAMI ---
PATIENT:ELOINA BAIRES MEDICAL RECORD: [id number] : 45 LOCATION:[facility] D.2118 ADMISSION DATE: 02/20/20 Generatedon:02/20/202016:08 Patient name: ELOINA BAIRES Patient #: [id number] SSN: : 1945 Date of study: 02/20/2020 Page: Of Hemodynamic Procedure Report Patient Data Patient Demographics Procedure consent was obtained First Name: ELOINA Gender: Female Last Name: VIRY : 1945 Middle Initial: A Age: 75 year(s) Patient #: [id number] Race: Additional ID: [id number] Contact details Address: [address] [place] [address] ROAD State: [place] City: [facility] Zip code: [address] Past Medical History History of disease Date Diagnosis Comments CAD Allergies Allergen Reaction Date Comments Reported Other allergy 12/30/2014 keflex, PCN, Codeine, Ceclor, Zyrtec, Doxycyline, Levaquin Other allergy 02/20/2020 KEFLEX, PCN, CECLOR,CODEINE, DOXYCYCLINE, LEVAQUIN, ZYRTEC Admission Admission Data Admission Date: 02/20/2020 Admission Time: 6:23 Room #: 2118 Lab Results Lab Result Date: 02/20/2020 Lab Result Time: 0:00 Biochemistry Name Units Result Min Max BUN mg/dl 13 --(--*-)-- 7 18 Creatinine mg/dl 1 --(--*-)-- 0.6 1.3 eGFR ml/min 57 *-(----)-- 90 120 NONAFRICAN CBC Name Units Result Min Max Hematocrit % 36 *-(----)-- 42 54 Hemoglobin g/dl 11 *-(----)-- 13.5 17.5 Procedure Procedure Types Cath Procedure Diagnostic Procedure LHC LHC w/Coronaries w/Grafts Aortic Root Angiography Sedation Charges Moderate Sedation up to 45 minutes PCI Procedure AMI/SVG/ECHOMETER ENGINEER PTCA or Stent SVG-BMS/MARKUS Initial Hemochron ACT Test Procedure Description Procedure Date Procedure Date: 02/20/2020 Procedure Start Time: 15:18 Procedure End Time: 16:06 Procedure Staff Name Function Cleveland Irvin MD Performing Physician Laverne Solomon RT Monitor Jazmín Jennifer RT Sound Designer Tish Friend RT Scrub Abby Stone RN Nurse Procedure Data Cath Procedure Fluoroscopy Diagnostic fluoroscopy Total fluoroscopy Time: time: 11.8 min 11.8 min Diagnostic fluoroscopy Total fluoroscopy dose: dose: 1043 mGy 1043 mGy Contrast Material Contrast Material Type Amount (ml) Isovue 300 161 Entry Location Entry Primary Successful Side Size Upsize Upsize Entry Closure Succes sful Closure Location (Fr) 1 (Fr) 2 (Fr) Remarks Device Remarks Femoral Right 5 Fr 6 Fr Exoseal artery Short Estimated blood loss: 10 ml Diagnostic catheters Device Type Used For End Catheter Placement MULTIPACK JL 4.0 5Fr Left Coronary catheter Angiography DIAGNOSTIC AR MOD 5Fr Procedure Catheter ([id number]) DIAGNOSTIC IM 5Fr Procedure catheter ([id number]) MULTIPACK Pigtail 5 Fr Ventriculography catheter DIAGNOSTIC IMT 5Fr Procedure Catheter ([id number]) Procedure Complications No complications Procedure Medications Medication Administration Route Dosage 0.9% NaCl I.V. 100 ml/hr Oxygen etCO2 Nasal cannula 2 l/min Lidocaine 2% added to field 20 Heparin Flush Bag added to field 2 bags (1000units/500ml NS) Versed I.V. 2 mg Fentanyl I.V. 50 mcg Heparin Bolus I.V. 6000 units Integrilin (Bolus I.V. 6.8 ml 2mg/ml) Integrilin (Bolus wasted 3.2 ml 2mg/ml) Plavix P.O. 600 mg Benadryl I.V. 50 mg Hemodynamics Rest Heart Rate: 81 (bpm) Pressure Samples Time Site Value (mmHg) Purpose Heart Use Rate(bpm) 15:31 LV 220/-1,28 Snapshot 100 15:32 AO 219/83(143) Pullback 100 15:32 LV 216/1,28 Pullback 100 Gradients Valve Time Site 1 Site 2 Mean SEP/DFP Peak To Heart Use (mmHg) (sec/min) Peak Rate (mmHg) (bpm) Aortic 15:32 LV AO 0 24 0 100 216/1,28 219/83(143) Calculations Valve P-P Mean Valve Index Valve Source Name Gradient Area Flow (cm2) Aortic 0 0 0 0 Snapshots Pre Cath Intra NCS Post Cath Vital Signs Time Heart Resp SPO2 etCO2 NIBP (mmHg) Rhythm Pain Sedation Rate (ipm) (%) (mmHg) Status Level (bpm) 14:59:47 82 24 98 41.1 183/86(131) NSR 0 (11) 10(A) , No pain 15:04:15 78 18 99 39.6 179/78(124) NSR 0 (11) 10(A) , No pain 15:08:44 81 23 100 40.4 194/85(137) NSR 0 (11) 10(A) , No pain 15:13:12 76 14 99 13 166/68(130) NSR 0 (11) 10(A) , No pain 15:17:28 77 12 99 11.9 154/71(113) NSR 0 (11) 10(A) , No pain 15:22:27 96 14 99 45.7 Measuring NSR 0 (11) 9(A) , No pain 15:22:43 97 14 100 46.4 173/85(132) NSR 0 (11) 9(A) , No pain 15:27:09 97 14 99 47.2 181/79(130) NSR 0 (11) 9(A) , No pain 15:31:42 98 15 99 45.7 174/75(111) NSR 0 (11) 9(A) , No pain 15:36:06 96 15 100 44.2 180/78(132) NSR 0 (11) 9(A) , No pain 15:40:41 92 17 99 16.4 173/70(114) NSR 0 (11) 9(A) , No pain 15:45:09 92 14 100 12.7 163/69(112) NSR 0 (11) 9(A) , No pain 15:50:08 98 16 100 41.9 Measuring NSR 0 (11) 9(A) , No pain 15:50:33 97 15 100 44.8 181/86(132) NSR 0 (11) 9(A) , No pain 15:55:01 91 14 100 44.8 184/72(114) NSR 0 (11) 9(A) , No pain 15:59:21 93 14 100 43.3 161/72(113) NSR 0 (11) 9(A) , No pain 16:04:20 94 15 100 44.9 Measuring NSR 0 (11) 9(A) , No pain 16:04:41 93 16 100 35.9 181/79(112) NSR 0 (11) 10(A) , No pain Medications Time Medication Route Dose Verified Delivered Reason Notes Effectiveness by by 14:58:26 Benadryl I.V. 50 mg Cleveland Abby used for Albaro Stone insulation engineman 14:58:42 0.9% NaCl I.V. 100 Cleveland Abby used for ml/hr Albaro Stone insulation engineman 14:58:49 Oxygen etCO2 2 Cleveland Abby used for Nasal l/min Albaro Stone procedure cannula RN 14:58:54 Lidocaine 2% added 20ml Cleveland Cleveland for local to vial Albaro Irvin MD anesthetic field 14:58:59 Heparin Flush added 2 Cleveland Cleveland used for Bag to bags Albaro Irvin MD procedure (1000units/500ml field NS) 15:16:22 Versed I.V. 2 mg Cleveland Abby for sedation Albaro Stone RN 15:16:32 Fentanyl I.V. 50 Cleveland Abby for sedation mcg Albaro Stone RN 15:54:02 Heparin Bolus I.V. 6000 Cleveland Abby for verif ied units Albaro Stone anticoagulation with Dr. MOE Irvin 15:54:16 Integrilin I.V. 6.8 Cleveland Abby for (Bolus 2mg/ml) ml Albaro Stone antiplatelet RN therapy 15:54:29 Integrilin wasted 3.2 Cleveland Abby for (Bolus 2mg/ml) ml Albaro Stone antiplatelet RN therapy 15:54:36 Plavix P.O. 600 Cleveland Abby for mg Albaro Stone antiplatelet RN therapy Procedure Log Time Note 14:35:13 Informed consent obtained and on chart 14:38:23 Procedure Status Urgent Heart Cath (IP). 14:38:25 Time tracking: Regular hours (M-F 7:00 - 5:00) 14:38:31 Plan of Care:Hemodynamics will remain stable., Cardiac rhythm will remain stable., Comfort level will be maintained., Respiratory function will remain adequate., Patient/ family verbilizes understanding of procedure., Procedure tolerated without complication., Recovers from procedure without complications.. 14:38:52 H&P Date Dictated: 02/20/2020 ER History on chart.. 14:39:04 Procedure type changed to Cath procedure, Diagnostic procedure, LHC, LHC w/Coronaries w/Grafts, Aortic Root Angiography, Sedation Charges, Moderate Sedation up to 45 minutes, PCI procedure, AMI/SVG/ECHOMETER ENGINEER PTCA or Stent, SVG-BMS/MARKUS Initial, Hemochron ACT Test 14:40:41 Patient allergic to Other allergyKEFLEX, PCN, CECLOR,CODEINE, DOXYCYCLINE, LEVAQUIN, ZYRTEC 14:41:22 Lab Result : BUN 13 mg/dl 14:41:22 Lab Result : Creatinine 1 mg/dl 14:41:22 Lab Result : Hemoglobin 11 g/dl 14:41:22 Lab Result : eGFR NONAFRICAN 57 ml/min 14:41:22 Lab Result : Hematocrit 36 % 14:42:55 Lab results completed and on chart. 14:46:25 Tish Friend RT(R) (CV) sent for patient. Start room use. 14:58:26 Benadryl 50 mg I.V. was administered by Abby Stone RN; used for procedure; Verbal order read back and verified. 14:58:30 Vital chart was started 14:58:42 0.9% NaCl 100 ml/hr I.V. was administered by Abby Stone RN; used for procedure; Verbal order read back and verified. 14:58:49 Oxygen 2 l/min etCO2 Nasal cannula was administered by Abby Stone RN; used for procedure; Verbal order read back and verified. 14:58:54 Lidocaine 2% 20ml vial added to field was administered by Cleveland Irvin MD; for local anesthetic; Verbal order read back and verified. 14:58:59 Heparin Flush Bag (1000units/500ml NS) 2 bags added to field was administered by Cleveland Irvin MD; used for procedure; Verbal order read back and verified. 15:01:05 Warm blankets applied, and birdie hugger turned on for patient comfort. 15:01:06 Correct patient and procedure confirmed by team. 15:01:07 ECG and BP/O2 sat monitors applied to patient. 15:01:08 Baseline sample Acquired. 15:01:12 Rhythm: sinus rhythm 15:01:16 Full Disclosure recording started 15:01:20 Family in patients room. 15:01:26 Patient NPO since Midnight. 15:01:30 Is the patient allergic to Iodine/contrast media? No. 15:01:34 Was the patient premedicated? No 15:01:36 Is patient on blood thinner?No 15:01:43 ACC The patient was administered the following blood thiners within the last 24 hours: None 15:01:47 Patient diabetic? Yes. 15:01:49 If diabetic: On Metformin? Yes 15:01:52 If on Metformin: Last Dose? 02/19/2020 15:02:06 Previous problem with sedation/anesthesia? No ? 15:02:08 Snore? Yes 15:02:10 Sleep apnea? No 15:02:21 Airway obstruction? Yes copd 15:02:29 Patient pain scale 0/10 ?. 15:02:44 IV patent on arrival in left antecubital with 0.9% NaCl at [facility]. 15:02:52 Lab results completed and on chart. 15:02:56 Right groin area was prepped with chlora-prep and draped in sterile fashion 15:02:57 Alarms reviewed by R. N. 15:02:58 Sharps counted by scrub and verified by R.N. 15:15:29 Physician arrived 15:15:29 --------ALL STOP TIME OUT------ 15:15:30 Final Timeout: patient, procedure, and site verified with staff and physician. All members of the team are in agreement. 15:15:32 Right groin site verified by team. 15:15:38 Fire Safety Assessment: A--An alcohol-based skin anteseptic being used preoperatively., C--Open oxygen or nitrous oxide is being used., D--An ESU, laser, or fiber-optic light is being used. 15:15:44 Physical assessment completed. ASA score P 3 - A patient with severe systemic disease as per Laverne Solomon RT(R). 15:15:53 3a) 45-59 Moderately reduced kidney function. 15:15:58 Maximum allowable contrast dose (3.7 X eGFR X 0.75)158 ml. 15:16:05 Sedation plan: IV Moderate Sedation Medication:Versed, Fentanyl 15:16:12 Use device set Femoral Dx 15:16:14 ACIST Syringe (95733) opened to sterile field. 15:16:15 Bag Decanter (2002S) opened to sterile field. 15:16:16 Medline Cath Pack ([id number]) opened to sterile field. 15:16:17 ACIST Hand Control (84832) opened to sterile field. 15:16:17 ACIST Manifold (02608) opened to sterile field. 15:16:18 DIAGNOSTIC Multipack 5Fr catheter set (EO2586) opened to sterile field. 15:16:19 Tegaderm 4 x 4 (1626W) opened to sterile field. 15:16:21 SHEATH 5FR [place] (TTB091) opened to sterile field. 15:16:22 Versed 2 mg I.V. was administered by Abby Stone RN; for sedation; Verbal order read back and verified. 15:16:22 EMERALD Guide Wire (798-314) opened to sterile field. 15:16:32 Fentanyl 50 mcg I.V. was administered by Abby Stone RN; for sedation; Verbal order read back and verified. 15:17:13 Zero performed for pressure channel P1 15:17:28 Procedure started. 15:18:59 Local anesthetic to right femoral artery with Lidocaine 2% by Cleveland Irvin MD.INITIAL ACCESS ONLY 15:19:09 A 5 Fr sheath was inserted into the Right Femoral artery 15:22:20 A MULTIPACK JL 4.0 5Fr catheter was advanced over the wire and used for Left Coronary Angiography. 15:23:31 LCA angiography performed. 15:23:35 Catheter removed. 15:25:05 A DIAGNOSTIC AR MOD 5Fr Catheter ([id number]) was advanced over the wire and used for Procedure. 15:25:17 RCA angiography performed. 15:25:26 SVG to RCA angiography performed. 15:26:29 SVG to Diag occluded. 15:26:45 Catheter removed. 15:30:59 A DIAGNOSTIC IM 5Fr catheter ([id number]) was advanced over the wire and used for Procedure. 15:31:03 VALDEZ to LAD angiography performed. 15:31:06 Catheter removed. 15:31:14 A MULTIPACK Pigtail 5 Fr catheter was advanced over the wire and used for Ventriculography. 15:32:06 EF : 50 % 15:32:24 Aortic Root visualized 15:36:27 Catheter removed. 15:36:36 A DIAGNOSTIC IMT 5Fr Catheter ([id number]) was advanced over the wire and used for Procedure. 15:36:41 VALDEZ angiography performed. 15:36:49 VALDEZ to LAD angiography performed. 15:47:22 Catheter removed. 15:47:28 Proceeding to intervention. 15:47:43 Sheath upsized to a 6 Fr Short. 15:49:04 BMW 300cm Novice 2 J wire (8622176H) opened to sterile field. 15:49:05 SHEATH 6FR [place] (LOP994) opened to sterile field. 15:49:06 INFLATOR Merit BasixCompak (OX2820) opened to sterile field. 15:49:07 TUBING High Pressure Extension Tubing (Albaro) (UU6122X) opened to sterile field. 15:49:08 GUIDE 6FR AR 1.0 catheter ([id number]) opened to sterile field. 15:49:39 6 Fr AR1 guide catheter was inserted over the wire 15:49:44 BMW wire advanced. 15:54:02 Heparin Bolus 6000 units I.V. was administered by Abby Stone RN; for anticoagulation; verified with Dr. Irvin Verbal order read back and verified. 15:54:16 Integrilin (Bolus 2mg/ml) 6.8 ml I.V. was administered by Abby Stone RN; for antiplatelet therapy; Verbal order read back and verified. 15:54:29 Integrilin (Bolus 2mg/ml) 3.2 ml wasted was administered by Abby Stone RN; for antiplatelet therapy; Verbal order read back and verified. 15:54:36 Plavix 600 mg P.O. was administered by Abby Stone RN; for antiplatelet therapy; Verbal order read back and verified. 16:00:18 Place stent Inflation Number: 1 A RUDDY OTW 3.0 x 12 stent ([id number]) was prepped and advanced across the Aorta Right -> Dist RCA 80. The stent was deployed at 11 KANIKA for 0:17 (min:sec) 10. 16:01:21 EXOSEAL 6Fr (EX600) opened to sterile field. 16:01:30 Wire removed. 16:01:31 Guide catheter removed. 16:01:47 Sheath removed intact; hemostasis achieved with Exoseal to the Right Femoral artery. 16:02:45 Procedure ended.(Physican Out) 16:02:56 Fluoroscopy time 11.80 minutes. 16:03:15 Fluoroscopy dose: 1043 mGy 16:03:15 Flurop Dose total: 1043 16:03:21 Dose Area Product 03309 mGy/cm. 16:03:28 Contrast amount:Isovue 300 161ml. 16:03:31 Maximum allowable dose exceeded? Yes. 16:03:34 Sharps counted by scrub and verified by R.N. 16:03:35 Insertion/operative site no bleeding no hematoma. 16:03:40 Post-op/insertion site Right Femoral artery dressed using a 4 x 4 and Tegaderm. 16:03:44 Post Procedure Pulses reassessed and unchanged 16:03:51 Post-procedure physical assessment completed. ASA score P 3 - A patient with severe systemic disease as per Cleveland Irvin MD. 16:04:03 Post procedure rhythm: unchanged. 16:04:06 Estimated blood loss: 10 ml 16:04:09 Post procedure instruction explained to patient.Patient verbalizes understanding. 16:05:14 Procedure and supply charges have been captured, reviewed, submitted and are correct. 16:05:51 Procedure Complication : No complications 16:05:53 Vital chart was stopped 16:05:58 [facility] Findings: MVD- PCI performed (see procedure note) 16:06:00 Operative report dictated upon procedure completion. 16:06:01 See physician's report for complete and final results. 16:06:03 Report given to Pre/Post Procedure Room. 16:06:09 Patient transfered to [facility] with Bed. 16:06:11 Procedure ended. 16:06:11 Full Disclosure recording stopped 16:06:17 End room use (Document Last) 16:06:58 ACT drawn and resulted at >400-out of range seconds. (normal therapeutic range 180-240 seconds). Intervention Summary Intervention Notes Time ActionType Lesion and Equipment Action# Pressure Duration Attributes Used 16:00:18 Place stent Aorta Right RUDDY OTW 3.0 1 11 00:17 -> Dist RCA x 12 stent ([id number]) Device Usage Item Name Manufacture Quantity Catalog Number [facility] nimal Lot# / Charge Number Stock Stock Serial# Code ACIST Syringe Acist 1 26639 765620 292717 754914 20 (77223) Medical Systems Inc Bag Decanter Microtek 1 812602 94629 775993 5 () Medical Inc. Medline Cath Medline 1 [id number] 594656 01701 309020 5 Pack ([id number]) ACIST Hand Acist 1 57862 838877 377110 165308 5 Control Medical (24713) Systems Inc ACIST Acist 1 23456 409673 870493 136234 5 Manifold Medical (54955) Systems Inc DIAGNOSTIC Cardinal 1 FF9276 777942 44029 032439 30 Multipack 5Fr Health catheter set (KA0790) Tegaderm 4 x 3M 1 1626W 791831 716861 966546 5 4 (1626W) SHEATH 5FR Terumo 1 ICI847 921250 234103 660693 5 [place] (NJR743) EMERALD Guide Cardinal 1 502-455 187168 697562 273741 5 Wire Health (502-455) MULTIPACK JL Cardinal 1 846592 5 4.0 5Fr Health catheter DIAGNOSTIC AR Cardinal 1 127998P 807582 356952 308112 15 MOD 5Fr Health Catheter (020380O) DIAGNOSTIC IM Cardinal 1 [id number] 813410 964581 294146 5 5Fr catheter Health (125533N) MULTIPACK Cardinal 1 261649 5 Pigtail 5 Fr Health catheter DIAGNOSTIC Dickinson 1 [id number] 575955 090812 90002 5 IMT 5Fr Scientific Catheter ([id number]) BMW 300cm Melton 1 [id number] 298333 862965 919634 5 Novice 2 J Vascular wire (2073218L) SHEATH 6FR Terumo 1 NUF698 949665 283623 912932 40 [place] (WMH582) INFLATOR Merit 1 WV1033 091583 259483 545761 15 Merit Medical BasixCompak (JH2997) TUBING High Merit 1 [id number] 483225 47077 830911 10 Pressure Medical Extension Tubing (Irvin) (VQ4914W) GUIDE 6FR AR Medtronic 1 RE4SI84 606148 95581 595771 1 1.0 catheter (NY8UL08) RUDDY OTW 3.0 Medtronic 1 [id number] 940863 2974823 302315 5 [id number] x 12 stent ([id number]) EXOSEAL 6Fr Cardinal 1 EX600 743711 737423 797231 10 (EX600) Health Signature Audit [place] Stage Time Signature Unsigned Intra-Procedure 02/20/2020 Laverne Solomon 4:07:41 PM RT(R) Intra-Procedure 02/20/2020 Abby Stone 4:08:04 PM RN Intra-Procedure 02/20/2020 Cleveland Irvin MD 4:08:50 PM [facility] [address] [place] [address]
[2020-02-20] MEDS ORDERED: NORVASC2.5 MG PO (02:00)
[2020-02-20 02:42] LABS: BASOPHILS 0 % (0-2); EOSINOPHILS 0 % (0-7); IMMATURE GRANULOCYTES 0.4 % (0-5); LYMPHOCYTES 17.1 % (15-50); MCH 26.1 pg (26.0-34.0); MCHC 30.6 g/dL (31.0-37.0); MCV 85.3 fL (80.0-100.0); MEAN PLATELET VOLUME 9.5 fL (7.4-10.4); MONOCYTES 7.6 % (2-11); NEUTROPHILS 74.9 % (40-80); PLATELET COUNT 247 10x3/uL (130-400); RBC 4.22 10x6/uL (4.00-5.40); RDW 14.2 % (11.5-14.5); WBC 5.5 10x3/uL (4.8-10.8)
[2020-02-20 02:52] LABS: ANION GAP 13.5 mmol/L (8-16); CALCIUM 8.8 mg/dL (8.5-10.1); CARBON DIOXIDE 24.4 mmol/L (21.0-32.0); POTASSIUM - SERUM 3.9 mmol/L (3.5-5.1)
[2020-02-20 02:53] LABS: INR 0.98 (0.85-1.17)
[2020-02-20 02:54] LABS: D-DIMER-QUANTITATIVE 0.29 ug/mLFEU (0.20-0.54)
[2020-02-20 03:06] LABS: ALBUMIN 3.8 g/dL (3.4-5.0); BILIRUBIN - TOTAL 0.15 mg/dL (0.2-1.3); C-REACTIVE PROTEIN 0.5 mg/dL (0.0-0.9); PROTEIN - SERUM 7.4 g/dL (6.4-8.2); TROPONIN-I 0.042 ng/mL (0.000-0.060)
--- NOTE | 2020-02-20 07:15 | NUR ---
ASSUMED CARE OF PT. A/A/O X3. RESTING IN BED NO C/O. VSS. RESP EVEN/UNALBORED
--- NOTE | 2020-02-20 07:42 | NUR ---
REPORT CALLED TO NURSE FRANCISCO
--- NOTE | 2020-02-20 07:55 | NUR ---
DR MCQUEEN AT BS. REPEAT EKG ORDERED AND COMPLETED. PT DENIES CP OR DISCOMFORT
--- NOTE | 2020-02-20 08:25 | NUR ---
ADMIT TO ROOM #2118, CONDITION STABLE
[2020-02-20 10:06] LABS: BASOPHILS 0 % (0-2); EOSINOPHILS 0.4 % (0-7); HEMATOCRIT 33.9 % (36.0-48.0); HEMOGLOBIN 10.2 g/dL (12-16); IMMATURE GRANULOCYTES 0.4 % (0-5); LYMPHOCYTES 23.3 % (15-50); MCH 25.6 pg (26.0-34.0); MCHC 30.1 g/dL (31.0-37.0); MCV 85.2 fL (80.0-100.0); MEAN PLATELET VOLUME 9.2 fL (7.4-10.4); MONOCYTES 9.7 % (2-11); NEUTROPHILS 66.2 % (40-80); PLATELET COUNT 236 10x3/uL (130-400); RBC 3.98 10x6/uL (4.00-5.40); RDW 14.2 % (11.5-14.5)
[2020-02-20 10:19] LABS: ALT (SGPT) 16 U/L (10-68); CALC OSMOLALITY 280 mosm/kg (275-300); CALCIUM 8.9 mg/dL (8.5-10.1); CARBON DIOXIDE 24.1 mmol/L (21.0-32.0); CHLORIDE - SERUM 104 mmol/L (98-107); CHOL - HDL RATIO 2.6 ratio (2.3-4.1); CHOLESTEROL, TOTAL 147 mg/dL (0-200); CREATININE - SERUM 0.7 mg/dL (0.6-1.3); GLUCOSE 127 mg/dL (74-106); HDL CHOLESTEROL 56 mg/dL (32-96); LDL CHOLESTEROL 66 mg/dL (0-100); LDL-HDL RATIO 1.2 ratio (1.5-3.5); POTASSIUM - SERUM 3.7 mmol/L (3.5-5.1); SODIUM 140 mmol/L (136-145); TRIGLYCERIDE 129 mg/dL (30-200); UREA NITROGEN 12 mg/dL (7-18); eGFR NON AFRICAN AMERICAN 86 mL/min (90-120)
--- NOTE | 2020-02-20 15:03 | NUR ---
TO CLIENT SERVICE ASSOCIATE BY Declan
--- NOTE | 2020-02-20 15:04 | NUR ---
LEAVING FOR SENIOR CONTROLS ANALYST BY BED. CONSENTS SIGNED. WILL CONT. PLAN OF CARE.
--- NOTE | 2020-02-20 16:31 | NUR ---
BACK FROM DECKHAND SHRIMP BOAT. RIGHT GROIN STABLE WITHOUT BLEEDING OR HEMATOMA NOTED.
--- NOTE | 2020-02-20 19:35 | NUR ---
RECEIVED BEDSIDE REPORT. ROUNDING COMPLETE. PATIENT RESTING COMFORTABLY IN BED. PATIENT REMAINS ON BEDREST UNTIL 1999. RIGHT GROIN ASSESSED AREA SOFT, MINIMAL BRUISING TO INSERTION SITE. NO SIGNS OF BLEEDING. CALL LIGHT WITHIN REACH. WILL CPOC.
[2020-02-21 04:00] VITALS: BP 122/41
--- NOTE | 2020-02-21 06:09 | NUR ---
ASSESSED PATIENT RIGHT GROIN. BRUISING NOTED AROUND INSERTION SITE, AREA IS SOFT TO THE TOUCH. NO C/O PAIN. CALL LIGHT WITHIN REACH. WILL CPOC.
[2020-02-21 07:21] LABS: ANION GAP 11.4 mmol/L (8-16); CALCIUM 8.4 mg/dL (8.5-10.1); CARBON DIOXIDE 28.9 mmol/L (21.0-32.0); MAGNESIUM - SERUM 2.2 mg/dL (1.8-2.4); PHOSPHOROUS 4.1 mg/dL (2.5-4.9)
[2020-02-21 07:30] LABS: POTASSIUM - SERUM 4.3 mmol/L (3.5-5.1)
[2020-02-21 09:54] VITALS: BP 103/37
[2020-02-21] MEDS ORDERED: PLAVIX75 MG PO (11:42)
--- NOTE | 2020-02-21 12:21 | NUR ---
IV AND TELEMETRY DCD. DC PLANS GIVEN. UNDERSTANDING VOICED. ESCORTED TO CAR BY W/C.
--- NOTE | 2020-02-22 14:57 | MORECARE ---
CASE MANAGEMENT DISCHARGE SUMMARY PATIENT: ELOINA BAIRES UNIT: [id number] ADM DATE: 02/20/20 AGE: 75 : 45 SEX: F ROOM/BED: D.5897 AUTHOR: MARAL BASS PHYSICIAN: REFERRING PHYSICIAN: NATASHA KIM MD DATE OF SERVICE: 02/22/20 Discharge Plan Patient Name: ELOINA BAIRES Facility: [facility]:[place] : [id number] Planned Disposition: Anticipated Discharge Date: Discharge Date: 02/21/2020 Expected LOS: 0 Initial Reviewer: [email or web address] Initial Review Date: 02/22/2020 Generated: 02/22/20 3:56 pm Coverage Notice Reviewer: [email or web address] - Chelsey Blanc Notice Issued Date-Time: 02/20/2020 13:52 Notice Type: Medicare Outpatient Observation Notice Notice Delivered To: Patient Relationship to Patient: Self Production Assembler Name: Delivery Method: HAND - Hand Delivered Sammie Days: Prior Verbal Notification: Recipient Understood Notice: Yes Recipient Signature: Yes Med Rec Note Co-signed by Attending: Coverage Notice Comment: SNOW explained, signed, given, copy placed in MR Patient Name: ELOINA BAIRES Page 51887 at 1457 All edits/amendments must be made on the electronic document DICTATION DATE: 02/22/201456 SCRAP BALLER: MAIA 02/22/20 1457 RPT#: [id number] DC DATE:02/21/20 STATUS: DIS IN [place] [address] [place] [address] END OF REPORT
== END 2020-02-21 12:21 | disposition home or self-care (01) ==
LOC: D.ER 01:48 → D.M2 06:23 → OBSVTIME 06:30 → D.M2 02-21 12:21
PROVIDERS: Family Medicine; Internal Medicine Cardiovascular Disease; ADMIT Family Medicine; ATTEND Family Medicine
DX: I21.4 Non-ST elevation (NSTEMI) myocardial infarction (principal); R07.89 Other chest pain; I25.110 Atherosclerotic heart disease of native coronary artery with unstable angina pectoris; J44.9 Chronic obstructive pulmonary disease, unspecified; Z86.73 Personal history of transient ischemic attack (TIA), and cerebral infarction without residual deficits; E11.9 Type 2 diabetes mellitus without complications; I10 Essential (primary) hypertension; K21.9 Gastro-esophageal reflux disease without esophagitis; Z79.84 Long term (current) use of oral hypoglycemic drugs
CPT/HCPCS: 93459; 93567; C9604